=== PATIENT | female | born 1955 | race Caucasian/White ===

== ENCOUNTER 2016-09-23 20:12 | Inpatient (IN) | payer MEDICARE, MEDICAID ==
[~2016-09-23 20:12] MED LIST: /DIVA50TA PO; /HALO5TAB PO; ABIL1TAB5 PO; ABIL400I IM; ABIL5TAB5 PO; AMLO10TA PO; ASCO500T PO; ATIV1TAB7 PO; ATIV2TAB PO; BENA25CA2 PO; BENA25TA4 PO; BENADRYL PO; CATA0.1T PO; COLA50CA3 PO; DEPA1TAB3 PO; DEPA250C PO; DEPAKENE PO; DESITIN EXT; FOLI1TAB2 PO; FRUICHW PO; HALDOL PO; Haldol PO; INVE234I IM; LATU20TA PO; LIPI10TA PO; LIPI20TA PO; LITH600C PO; MELA3CAP PO; MULTCAP PO; NORV5TAB PO; PROP20TA5 PO; SELE50TA PO; TRAZ50TA4 PO; VALP25EL PO; VENL150C43 PO; VENL75CA47 PO; VITA500C24 PO; [UNRECOGNIZED DRUG - CODE] PO; cogentin PO; haldol PO
[2016-09-23] MEDS ORDERED: NS 1,000 ML IV ONE (20:45)
[2016-09-23 21:22] LABS: BASO % 0.5 % (0.0-1.0); EOS # 0.2 K/mm3 (0.0-0.50); EOS % 2.2 % (0.0-3.0); LARGE UNSTAINED CELL # 0.2 K/mm3 (0.0-0.4); LARGE UNSTAINED CELL % 1.8 % (0.0-4.0); LYMPH # 3.4 K/mm3 (1.5-4.5); LYMPH % 38.8 % (24.0-44.0); MEAN CORPUSCULAR HEMOGLOBIN 28.4 pg (27.0-33.0); MEAN CORPUSCULAR HGB CONC 32.6 g/dl (32.0-36.5); MONO # 0.5 K/mm3 (0.0-0.8); MONO % 5.4 % (0.0-5.0); NEUTROPHILS # 4.3 K/mm3 (1.8-7.7); NEUTROPHILS % 51.4 % (36.0-66.0); PLATELET COUNT, AUTOMATED 298 k/mm3 (150-450); RED CELL DISTRIBUTION WIDTH 12.9 % (11.5-14.5); WHITE BLOOD COUNT 8.4 K/mm3 (4.0-10.0)
[2016-09-23] MEDS ORDERED: LORazepam 2 MG/ML VIAL (J2060) IV STA (21:23)
[2016-09-23 21:25] LABS: VENOUS O2 SATURATION 98.4 % (60.0-80.0); VENOUS PARTIAL PRESSURE CO2 36.3 mmHg (38.0-50.0); VENOUS PARTIAL PRESSURE O2 113.5 mmHg (30.0-50.0); VENOUS STANDARD HCO3 23.6 MEQ/L; VENOUS TOTAL CO2 24.1 MEQ/L (24.0-28.0)
[2016-09-23 21:57] LABS: ALBUMIN 4.1 GM/DL (3.2-5.2); ALBUMIN/GLOBULIN RATIO 1.17 (1.00-1.93); ALKALINE PHOSPHATASE 84 U/L (45-117); ALT/SGPT 40 U/L (12-78); ANION GAP 11 MEQ/L (8-16); AST/SGOT 22 U/L (15-37); BILIRUBIN,DIRECT 0.1 MG/DL (0.0-0.2); BILIRUBIN,TOTAL 0.4 MG/DL (0.2-1.0); BLOOD UREA NITROGEN 15 MG/DL (7-18); CALCIUM LEVEL 9.2 MG/DL (8.8-10.2); CARBON DIOXIDE LEVEL 25 MEQ/L (21-32); CHLORIDE LEVEL 106 MEQ/L (98-107); CREATININE FOR GFR 1.04 MG/DL (0.55-1.02); GLOMERULAR FILTRATION RATE 57.4 (>45); GLUCOSE, FASTING 151 MG/DL (80-110); SODIUM LEVEL 142 MEQ/L (136-145); TOTAL PROTEIN 7.6 GM/DL (6.4-8.2)
[2016-09-23 23:30] LABS: METHADONE URINE NEGATIVE (NEGATIVE)
[2016-09-24] MEDS ORDERED: LORazepam 2 MG TAB PO ONE (06:15)
--- NOTE | 2016-09-24 09:38 | ECGEPIP ---
Stationary ECG Study [facility] - ED Test Date: 2016-09-23 Pat Name: GRISELDA RODARTE Department: Room: - Gender: F Sld Inclusion Teacher: lizandro : 1955 Requested By: HEATHER Rodriguez Order Number: [id number] Reading MD: Zita Soto Measurements Intervals [place] Rate: 100 P: 60 VT: 129 QRS: 52 QRSD: 94 T: 59 QT: 297 QTc: 383 Interpretive Statements SINUS TACHYCARDIA NONSPECIFIC T-WAVE ABNORMALITY ABNORMAL RHYTHM ECG RIGHT VENTRICULAR CONDUCTION DELAY SIMILAR 05/13/15 Electronically Signed On 09-24-2016 9:38:20 EDT by Zita Soto
[2016-09-24] MEDS ORDERED: LORazepam 2 MG TAB PO STA (11:34)
[2016-09-24 16:15] VITALS: BP 158/83
[2016-09-24] MEDS ORDERED: ACETAMINOPHEN TAB 650MG DOSE (2X325MG) PO PRN (17:15)
[2016-09-24] MEDS ORDERED: traZODone 50 MG TAB PO PRN (17:15)
[2016-09-24] MEDS ORDERED: MOM 30ML SUSPENSION UDC PO PRN (17:15)
[2016-09-24] MEDS ORDERED: MAALOX 30 ML SUSP *UDC PO PRN (17:15)
--- NOTE | 2016-09-25 10:57 | HPEPDOC ---
Medical History and Physical Date of Admission Sep 24, 2016 at 13:23 History and Physical PCP: None ATTENDING: Dr. Phan Fuller HPI: 61yoM admitted to [facility] for schizophrenia, being medically examined today. No acute medical complaints today. Patient states she has not been taking her regular medications. She practices homeopathic medication and uses Dramamine. Denies any fevers, chills, weakness, fatigue, ALLEN, CP, SOB, cough, palpitations, abdominal pain, N/V/D or changes in bowel or bladder habits. PMHx: Schizophrenia Anxiety Depression Bipolar disorder Hyperlipidemia Hypertension Tobacco use PSHX: Left forearm surgery SOCHX: Resides in: [place] Marital Status: Single Kids: None Employment: Unemployed Tobacco use: 1 pack per day ETOH: Denies Illicit Drugs: Denies IV Drug Use: Denies Tattoos done unprofessionally: Denies FAMHX: Mother: , liver cancer Father: , old age Siblings: 2 brothers Alive, well Children: None ROS: As noted in HPI, otherwise 11pt ROS of systems reviewed and remarkable for abrasion on the left knee which she states was from tripping on some stairs. PE: GEN: 61 yo F, appears stated age. Well-nourished, well developed. Alert and oriented x 3. Anxious. Rapid, pressured, tangential speech. HEENT: Normocephalic, atraumatic. Pupils are equal, round, and reactive to light. Extraocular movements are intact. No nystagmus appreciated. Sclera are nonicteric. Conjunctiva without injection. Nose midline. Nasal turbinates without bogginess. EACs both patent BL. TMs both visualized and pillai with good cone of light, no bulging or erythema. No facial asymmetry. Moist mucous membranes. Dentition fair. Pharynx pink and moist, no cobblestoning. Neck supple , trachea midline. No lymphadenopathy or thyromegaly appreciated. CHEST: Regular rate and rhythm, +S1, +S2 LUNGS: Clear to auscultation bilaterally. No wheezes, rales, or rhonchi. Breathing appears symmetric and easy. Patient is speaking in full sentences. No accessory muscle use. ABD: Round, soft, non-tender, non-distended. +Bowel sounds throughout. No rebound or guarding. No costovertebral angle tenderness. EXT: Pulses 2+ bilaterally dorsalis pedis and radial. No lower extremity edema appreciated. SKIN: [place], dry, warm. Capillary refill <2sec. No rashes. NEURO: Alert and oriented x 3. Cranial nerves III-XII are intact. No focal deficits appreciated. EK09/23/16 SINUS TACHYCARDIA NONSPECIFIC T-WAVE ABNORMALITY ABNORMAL RHYTHM ECG RIGHT VENTRICULAR CONDUCTION DELAY SIMILAR 05/13/15. A&P: 61yoM admitted to [facility] for schizophrenia 1. Psych. Plan per Psychiatry. EKG on file. 2. Nicotine dependence. Patch available. 3. Borderline EKG. No cardiac signs or symptoms appreciated on exam, follow with PCP. 4. Follow up. No Primary Care Provider. Will attempt to establish PCP on discharge. 5. Abrasion Left knee/ H/O Fall on Stairs. Dry dressing if needed. Recheck CK. 6. Reduced po intake. Recheck BMP. 7. Torrie SALES present throughout exam. Vital Signs Vital Signs Label Value Date Time Blood Pressure Assessment 122/72 (89) 09/24/16 1502 Source Automatic Cuff (NIBP) Vital Signs Label Value Date Time Patient Temperature 98.5 degrees F 09/24/16 1615 Temperature Source Skin 09/24/16 1615 Pulse 85 09/24/16 1615 Respiratory Rate 16 bpm 09/24/16 1615 Blood Pressure Assessment 158/83 (108) 09/24/16 1615 Bedside Pulse Oximetry 95 % 09/24/16 1615 Item Value Date Time Oxygen Delivery Method Room Air 09/24/16 1615 Laboratory Data Labs 24H Item Value Date Time White Blood Count 8.4 K/mm3 09/23/162101 Red Blood Count 4.71 M/mm3 09/23/162101 Hemoglobin 13.4 g/dl 09/23/162101 Hematocrit 40.9 % 09/23/162101 Mean Corpuscular Volume 87.0 fl 09/23/162101 Mean Corpuscular Hemoglobin 28.4 pg 09/23/162101 Mean Corpuscular Hemoglobin Concent 32.6 g/dl 09/23/162101 Red Cell Distribution Width 12.9 % 09/23/162101 Platelet Count 298 k/mm3 09/23/162101 Sodium Level 142 MEQ/L 09/23/162101 Potassium Level 4.0 MEQ/L 3/26/17 2102 Chloride Level 106 MEQ/L 09/23/162101 Carbon Dioxide Level 25 MEQ/L 09/23/162101 Anion Gap 11 MEQ/L 09/23/162101 Blood Urea Nitrogen 15 MG/DL 09/23/162101 Creatinine 1.04 MG/DL H 09/23/162101 Glomerular Filtration Rate 57.4 09/23/162101 Fasting Glucose 151 MG/DL H 09/23/162101 Osmolality 298 MOSM/KG 09/23/162101 Calcium Level 9.2 MG/DL 09/23/162101 Total Bilirubin 0.4 MG/DL 09/23/162101 Direct Bilirubin 0.1 MG/DL 09/23/162101 Aspartate Amino Transf (AST/SGOT) 22 U/L 09/23/162101 Alanine Aminotransferase (ALT/SGPT) 40 U/L 09/23/162101 Alkaline Phosphatase 84 U/L 09/23/162101 Total Creatine Kinase 261 U/L H 09/23/162101 Total Protein 7.6 GM/DL 09/23/162101 Albumin 4.1 GM/DL 09/23/162101 Albumin/Globulin Ratio 1.17 09/23/162101 Thyroid Stimulating Hormone (TSH) 1.290 uIU/ML 09/23/162101 Salicylates Level 2.6 MG/DL L 09/23/162101 Urine Opiates Screen NEGATIVE 09/23/162251 Urine Methadone Screen NEGATIVE 09/23/162251 Acetaminophen Level < 2.0 UG/ML L 09/23/162101 Urine Barbiturates Screen NEGATIVE 09/23/162251 Urine Phencyclidine Screen NEGATIVE 09/23/162251 Urine Amphetamines Screen NEGATIVE 09/23/162251 Urine Benzodiazepines Screen NEGATIVE 09/23/162251 Urine Cocaine Metabolite Screen NEGATIVE 09/23/162251 Urine Cannabinoids Screen NEGATIVE 09/23/162251 Ethyl Alcohol Level < 0.003 % 09/23/162101 Home Medications Unable to Obtain Active Prescriptions or Reported Meds Allergies Coded Allergies: Iodine (Verified Allergy, Unknown, 09/23/16) Scallop (Verified Allergy, Unknown, 09/23/16) Shellfish Allergy (Verified Allergy, Unknown, 09/23/16) Olanzapine (Verified Adverse Reaction, Unknown, mikie feeling in arms, ) Risperidone (Verified Adverse Reaction, Unknown, feeling rigid in my legs , 09/23/16) Huma Cunningham Sep 25, 2016 10:57
--- NOTE | 2016-09-25 12:38 | MHHPE ---
DATE OF ADMISSION: 09/24/2016 DATE OF SERVICE: 09/25/2016 This 61-year-old female states to me she is living in her apartment, and she states there were sick people there. She states the people are screaming at her. She states some of the people have been evicted and are living in a dark room as squatters. The patient states she takes dramamine for sleep. It works extremely well. She states some of the people in her apartment are yelling at her, that they were previously evicted. MEDICATIONS: The patient does not take any psychiatric medications. She takes homeopathic medications, lycopodium, and dramamine and is hoping to take thorn apple peel. She states thorn apple is for people who laugh a lot like her. She was unable to discuss her past medications. PSYCHIATRIC HISTORY: She has been hospitalized here approximately ten times with a history of court-ordered treatments and noncompliance. Apparently, the district sales manager is trying to get court-ordered outpatient treatment for her. LEGAL HISTORY: The patient did not want to discuss it. ALCOHOL HISTORY: Is negative. DRUG HISTORY: Is denied. MEDICAL HISTORY: The patient says she had ringworm and has a small wound on her right inner leg that she has been scratching at. She states she has a high school education. 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 MENTAL STATUS EXAMINATION: The patient's mood is elevated. Affect is bright. Her speech is circumferential, tangential, and rapid. She denies suicidal or homicidal ideation and is denying hallucinations, obsessions, compulsions, and phobias. She states she has an apartment to live in and would like to go home. Reviewing her emergency room admission, she was admitted to the emergency room with "disorganized thoughts, uncooperative, and paranoid about why she was brought here." She threatened police officers. She was sexually inappropriate with the officers and stating she had to clean out her system. She has bought glue for her teeth that are loose. The patient was reported to have Comet powder all over her arm and face and hands and near her mouth. According to emergency room, she had pressured speech. Was hard to redirect when she was being inappropriate and was verbally threatening. The patient has a long history with this facility and a long history of noncompliance with medication. She has a Department of [employer] ([employer]) worker named Kar Marti, who has assisted in getting her housing. She feels that there were drug dealers, bugs, and dirt in her apartment. The patient states in the emergency room and to me that she will only take homeopathic medications. Apparently, we had no available beds in our unit, and attempts to find patient bed at [facility]another [facility] Hospital were unsuccessful. The patient did not seem to be responding to internal stimuli during my interview with her. PLAN: Most likely, this patient will eventually need court-ordered outpatient treatment or commitment to a State facility. At this time, she is not demonstrating any suicidal or homicidal thoughts. Previous attempts to court-ordered treatment or in any way medicate this the patient have been met with a lack of success and a lack of compliance. Her living situation will be evaluated, and the patient will be evaluated, whether, in fact, we can be of any help to her in this facility. JOSE ARMANDO
--- NOTE | 2016-09-25 17:32 | MHDS ---
DATE OF ADMISSION: 09/24/2016 DATE OF DISCHARGE: 09/25/2016 This 61-year-old female has a long and extensive inpatient psychiatric history. She has many hospitalizations here on our unit. In which, she has been uncooperative with medication, been having to go to court to take medication and to get treatment against her wishes, and frequently the court has ruled in her favor. She states there were sick people in her apartment. She states people were screaming at her that some of the people that are there have previously been evicted and are living in a dark room as squatters. The patient states she takes Dramamine for sleep. She takes no other medications except for herbal medications. She states her herbal medications work well. MEDICATION HISTORY: The patient does not take any psychiatric medications and has in the past refused to take psychiatric medications and has been noncompliant with psychiatric medications. She takes homeopathic medications that she has told me were lycopodium, Dramamine, and hopefully thorn apple peel. She states that this medication is for people who laugh a lot like her. PSYCHIATRIC HISTORY: Numerous psychiatric hospitalizations here with court ordered treatments, noncompliance, and disruption on the unit. Apparently, court ordered outpatient treatment is trying to be arranged. LEGAL HISTORY: The patient did not want to discuss it. She denies alcohol use, drug history. MEDICAL HISTORY: The patient states that she had ringworm, a small wound on her leg which she said was cancer which she has cured on her own. She states she has a high school education. 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 MENTAL STATUS EXAMINATION: The patient denies repetitively any suicidal or homicidal ideation. Her mood is somewhat elevated. Her affect is bright. Her speech is circumferential, tangential, and rapid. She repetitively asks to be discharged and that she does not want medication. She is denying hallucinations, obsessions, compulsions, and phobias. She states she has an apartment to live in and would like to go home. Her admission to the emergency room was not for suicidal or homicidal ideation or acts, but she was found to be having disorganized thought and was uncooperative. They found her apartment to be disrupted, in that she had Comet spread all over the apartment that she was trying to clean. She had pressured speech. Attempts were made to find a hospital bed for her as our unit was full but then she was admitted this morning. She works with Department of [employer], Kar Josetanner, who has assisted in getting her housing and is working on getting her court ordered outpatient treatment. The patient did not seem to be responding to internal stimuli. PLAN: This patient will eventually need court ordered outpatient treatment and most likely will end with repetitive admissions. However, she is not demonstrating any suicidal or homicidal thoughts and is presently cooperative with requests on the unit. Previous attempts to court ordered treatment following disruption on units and attempts to medicate this patient have been met with not only a lack of success but a lack of compliance. Therefore, since this patient does not apparently seem to be a danger to herself or others, I will discharge her today. Without question, she needs psychiatric care but she does not want it nor has not been compliant with it. DIAGNOSIS: Bipolar disorder with psychotic features. She will be discharged to home.
== END 2016-09-25 16:20 | disposition home or self-care (01) | DRG 885 ==
LOC: M ED 21:21 → M ED INP 09-24 13:23 → M PSY 09-24 16:04
PROVIDERS: ADMIT Psychiatry & Neurology Child & Adolescent Psychiatry; ATTEND Psychiatry & Neurology Child & Adolescent Psychiatry
DX: F31.5 Bipolar disorder, current episode depressed, severe, with psychotic features (principal); E78.5 Hyperlipidemia, unspecified; I10 Essential (primary) hypertension; F17.210 Nicotine dependence, cigarettes, uncomplicated; Z91.14 Patient's other noncompliance with medication regimen; Z91.013 Allergy to seafood; Z88.8 Allergy status to other drugs, medicaments and biological substances; Z91.018 Allergy to other foods

== ENCOUNTER 2016-10-06 21:28 | Inpatient (IN) | payer MEDICARE, MEDICAID ==
[2016-10-06] MEDS ORDERED: HALOPERIDOL 5 MG/ML VIAL (J1630) IM ONE (23:00)
[2016-10-06] MEDS ORDERED: LORazepam 2 MG/ML VIAL (J2060) IM ONE (23:00)
[2016-10-06 23:20] LABS: MEAN CORPUSCULAR HEMOGLOBIN 27.9 pg (27.0-33.0); MEAN CORPUSCULAR HGB CONC 32.2 g/dl (32.0-36.5); MEAN CORPUSCULAR VOLUME 86.7 fl (80.0-96.0)
[2016-10-06 23:30] LABS: METHADONE URINE NEGATIVE (NEGATIVE)
[2016-10-06 23:41] LABS: ALBUMIN/GLOBULIN RATIO 1.25 (1.00-1.93); ALKALINE PHOSPHATASE 75 U/L (45-117); ALT/SGPT 43 U/L (12-78); ANION GAP 11 MEQ/L (8-16); AST/SGOT 23 U/L (15-37); BILIRUBIN,DIRECT < 0.1 MG/DL (0.0-0.2); BILIRUBIN,TOTAL 0.3 MG/DL (0.2-1.0); BLOOD UREA NITROGEN 9 MG/DL (7-18); CALCIUM LEVEL 9.2 MG/DL (8.8-10.2); CARBON DIOXIDE LEVEL 25 MEQ/L (21-32); CHLORIDE LEVEL 105 MEQ/L (98-107); CREATININE FOR GFR 0.73 MG/DL (0.55-1.02); GLOMERULAR FILTRATION RATE > 60.0 (>45); GLUCOSE, FASTING 116 MG/DL (80-110); POTASSIUM SERUM 3.9 MEQ/L (3.5-5.1); SODIUM LEVEL 141 MEQ/L (136-145); TOTAL PROTEIN 7.2 GM/DL (6.4-8.2)
[2016-10-07] MEDS ORDERED: traZODone 50 MG TAB PO PRN (00:15)
[2016-10-07] MEDS ORDERED: LORazepam 1 MG TAB PO PRN (00:15)
[2016-10-07] MEDS: ACETAMINOPHEN TAB 650MG DOSE (2X325MG) PO PRN (19:25)
--- NOTE | 2016-10-08 05:30 | MHHPE ---
DATE OF ADMISSION: 10/07/2016 DATE OF EVALUATION: 10/07/2016 HISTORY OF PRESENT ILLNESS: This is a 61-year-old white woman with history of schizophrenia and chronic noncompliance with treatment. She was admitted after she was brought by the police. She had been accosting people in the streets and saying she wanted to eat people and cut off people's ears. She was disheveled. Her thinking was very disorganized. She could not really answer any questions. Today I am not really able to get much of a history from her either. Mostly I am getting word salad and I really cannot make out much of anything. PAST PSYCHIATRIC HISTORY: I was able to review records from hospitalizations at [facility] from 09/24/2016, to 09/25/2016. She presented acutely psychotic. She indicated she would only take homeopathic medications. It was not felt that she was an acute danger to self or others, and she was pretty much discharged overnight, and she was discharged on no medications. Further review from records from other hospitalizations at [facility] , showed at least one occasion they did go to court and obtained treatment over objection , so patient was also refusing medications at that point. MEDICAL HISTORY: The patient has hypercholesterolemia, hypertension. FAMILY HISTORY: No psychiatric history in the family or suicides in the family. SUBSTANCE ABUSE HISTORY: The patient denies any problems with alcohol and drug use. REVIEW OF SYSTEMS: VITAL SIGNS: Blood pressure 172/89, pulse 98, respirations 16, temperature 96.1. APPEARANCE: The patient was disheveled NEUROMUSCULAR SYSTEM: The patient's gait is normal and there was no involuntary movements noted. All other systems were reviewed and found to be negative. MENTAL STATUS EXAM: The patient is alert and oriented to person at least. Her speech is pressured and thought are so disorganized that I could not further complete the mental status exam.Insight and judgement is severely impaired DIAGNOSIS: Bipolar disorder, type I, manic, with psychotic symptoms. TREATMENT PLAN: At this point, we will encourage the patient to restart her medications, but she has been refusing so far. It may be necessary to go to the treatment over objection for this patient, because she seems to be a threat to the community and indirectly to herself. SHANNAND
[2016-10-08] MEDS: ACETAMINOPHEN TAB 650MG DOSE (2X325MG) PO PRN ×2 (07:36→15:03)
[2016-10-08] MEDS: ARIPiprazole 10 MG TAB PO SCH (09:00)
[2016-10-08] MEDS: MUPIROCIN 2% OINT 22 GM TUBE TOP SCH ×2 (09:00→20:08)
[2016-10-08] MEDS: **PENDING PPD ENTRY XX SCH (09:00)
--- NOTE | 2016-10-08 10:12 | HPEPDOC ---
Medical History and Physical Date of Admission Oct 07, 2016 at 00:04 History and Physical PCP: None ATTENDING: Dr. Phan Fuller HPI: 61yoM admitted to [facility] for schizophrenia, being medically examined today. No acute medical complaints today. Patient states she has not been taking her regular medications. She states she uses Dramamine. She states she needs to see a dentist but denies any dental pain at this time. Denies any fevers, chills, weakness, fatigue, ALLEN, CP, SOB, cough, palpitations, abdominal pain, N/V/D or changes in bowel or bladder habits. PMHx: Schizophrenia Anxiety Depression Bipolar disorder Hyperlipidemia Hypertension Tobacco use poor dentition PSHX: Left forearm surgery SOCHX: Resides in: [place] Marital Status: Single Kids: None Employment: Unemployed Tobacco use: 1 pack per day ETOH: Denies Illicit Drugs: Denies IV Drug Use: Denies Tattoos done unprofessionally: Denies FAMHX: Mother: , liver cancer Father: , old age Siblings: 2 brothers Alive, well Children: None ROS: As noted in HPI, otherwise 11pt ROS of systems reviewed and remarkable for a small dime size skin lesion Rt pretibial area as per nursing. PE: GEN: 61 yo F, appears stated age. Well-nourished, well developed. Alert and oriented x 3. Anxious. Rapid, pressured, tangential speech. HEENT: Normocephalic, atraumatic. Pupils are equal, round, and reactive to light. Extraocular movements are intact. No nystagmus appreciated. Sclera are nonicteric. Conjunctiva without injection. Nose midline. Nasal turbinates without bogginess. EACs both patent BL. TMs both visualized and pillai with good cone of light, no bulging or erythema. No facial asymmetry. Moist mucous membranes. Dentition poor. Pharynx pink and moist. Neck supple, trachea midline. No lymphadenopathy or thyromegaly appreciated. CHEST: Regular rate and rhythm, +S1, +S2 LUNGS: Clear to auscultation bilaterally. No wheezes, rales, or rhonchi. Breathing appears symmetric and easy. Patient is speaking in full sentences. No accessory muscle use. ABD: Round, soft, non-tender, non-distended. +Bowel sounds throughout. No rebound or guarding. No costovertebral angle tenderness. EXT: Pulses 2+ bilaterally dorsalis pedis and radial. No lower extremity edema appreciated. SKIN: [place], dry, warm. No rashes. There is a small dime sized skin lesion noted pretibial area RLE, no drainage, no signs of infection. NEURO: Alert and oriented x 3. Cranial nerves III-XII are intact. No focal deficits appreciated. EK09/23/16 SINUS TACHYCARDIA NONSPECIFIC T-WAVE ABNORMALITY ABNORMAL RHYTHM ECG RIGHT VENTRICULAR CONDUCTION DELAY SIMILAR 05/13/15. A&P: 61yoM admitted to [facility] for schizophrenia 1. Psych. Plan per Psychiatry. EKG on file. 2. Nicotine dependence. Patch available. 3. Borderline EKG. No cardiac signs or symptoms appreciated on exam, follow with PCP. 4. Follow up. No Primary Care Provider. Will attempt to establish PCP on discharge. 5. Skin lesion RLE. Dry dressing if needed. Monitor for any signs of infection. Outpt F/U. 6. Sugey SALES present throughout exam. Vital Signs Vital Signs Date Time Temp Pulse Resp B/P Pulse Ox O2 Delivery O2 Flow Rate FiO2 10/07/16 00:43 98 16 172/89 94 10/06/16 22:25 96.1 Laboratory Data Labs 24H Item Value Date Time White Blood Count 9.0 K/mm3 10/06/162211 Red Blood Count 4.28 M/mm3 10/06/162211 Hemoglobin 12.0 g/dl 10/06/162211 Hematocrit 37.1 % 10/06/162211 Mean Corpuscular Volume 86.7 fl 10/06/162211 Mean Corpuscular Hemoglobin 27.9 pg 10/06/162211 Mean Corpuscular Hemoglobin Concent 32.2 g/dl 10/06/162211 Red Cell Distribution Width 13.0 % 10/06/162211 Platelet Count 277 k/mm3 10/06/162211 Sodium Level 141 MEQ/L 10/06/162211 Potassium Level 3.9 MEQ/L 10/06/162211 Chloride Level 105 MEQ/L 10/06/162211 Anion Gap 11 MEQ/L 10/06/162211 Carbon Dioxide Level 25 MEQ/L 10/06/162211 Blood Urea Nitrogen 9 MG/DL 10/06/162211 Creatinine 0.73 MG/DL 10/06/162211 Glomerular Filtration Rate > 60.0 10/06/162211 Fasting Glucose 116 MG/DL H 10/06/162211 Calcium Level 9.2 MG/DL 10/06/162211 Total Bilirubin 0.3 MG/DL 10/06/162211 Direct Bilirubin < 0.1 MG/DL 10/06/162211 Aspartate Amino Transf (AST/SGOT) 23 U/L 10/06/162211 Alanine Aminotransferase (ALT/SGPT) 43 U/L 10/06/162211 Alkaline Phosphatase 75 U/L 10/06/162211 Total Protein 7.2 GM/DL 10/06/162211 Albumin 4.0 GM/DL 10/06/162211 Albumin/Globulin Ratio 1.25 10/06/162211 Thyroid Stimulating Hormone (TSH) 1.140 uIU/ML 10/06/162211 Salicylates Level 2.8 MG/DL L 10/06/162211 Urine Opiates Screen NEGATIVE 10/06/162211 Urine Methadone Screen NEGATIVE 10/06/162211 Acetaminophen Level < 2.0 UG/ML L 10/06/162211 Urine Barbiturates Screen NEGATIVE 10/06/162211 Urine Phencyclidine Screen NEGATIVE 10/06/162211 Urine Amphetamines Screen NEGATIVE 10/06/162211 Urine Benzodiazepines Screen NEGATIVE 10/06/162211 Urine Cocaine Metabolite Screen NEGATIVE 10/06/162211 Urine Cannabinoids Screen NEGATIVE 10/06/162211 Ethyl Alcohol Level < 0.003 % 10/06/162211 Home Medications Unable to Obtain Active Prescriptions or Reported Meds Allergies Coded Allergies: Iodine (Verified Allergy, Unknown, 09/23/16) Scallop (Verified Allergy, Unknown, 09/23/16) Shellfish Allergy (Verified Allergy, Unknown, 09/23/16) Olanzapine (Verified Adverse Reaction, Unknown, mikie feeling in arms, ) Risperidone (Verified Adverse Reaction, Unknown, feeling rigid in my legs , 09/23/16) Huma Cunningham Oct 08, 2016 10:12
[2016-10-08] MEDS ORDERED: TUBERCULIN PPD 5 UNITS/0.1 ML ID ONE (10:15)
[2016-10-08] MEDS ORDERED: diphenhydrAMINE 50 MG CAP PO PRN (10:30)
[2016-10-08] MEDS ORDERED: LORazepam 2 MG TAB PO PRN (10:30)
[2016-10-08] MEDS ORDERED: HALOPERIDOL 5 MG TAB PO PRN (10:30)
--- NOTE | 2016-10-08 11:21 | IPN ---
DATE: 10/08/2016 Yun Montes was admitted by Dr. Katz. She continues to present with thought disorder and elevated mood. Apparently, she had accosted people in the streets and said she wanted to eat people and cut off people's ears. The patient was recently here at the hospital and was discharged since she did not present an immediate danger to herself or others. The patient has a history of refusing all medications and numerous court appearances for treatment over objection. She also has history of noncompliance with medications. She presents today with rapid speech, elevated mood, poor insight, poor judgment, loose associations, circumferential and circumstantial thinking, poor attention and poor concentration, elevated mood with congruent affect. PLAN: Due to patient's present refusal of any psychiatric medications and past difficulties with that, I have suggested her hospitalization at [facility] and have ordered the appropriate orders for that. I have ordered Abilify 10 mg, but if history serves us, she will be refusing any medication. DIAGNOSIS: Bipolar disorder, manic type. FDC plan is to send to [facility].
[2016-10-09] MEDS: MAALOX 30 ML SUSP *UDC PO PRN (03:14)
[2016-10-09] MEDS: MUPIROCIN 2% OINT 22 GM TUBE TOP SCH ×2 (08:21→20:41)
[2016-10-09] MEDS: ARIPiprazole 10 MG TAB PO SCH (08:21)
[2016-10-09] MEDS: **PENDING PPD ENTRY XX SCH (08:22)
--- NOTE | 2016-10-09 13:45 | IPN ---
DATE: 10/09/2016 Yun Montes continues to be hyper-verbal, thought disordered, loose associations, circumferential thinking, circumstantial thinking with poor insight and poor judgment. She continues to refuse any medications as she has done in the past. She has been prescribed Abilify. The patient has a history of refusing all medications, numerous court appearances for treatment over objection, long history of noncompliance with medications, and again today has rapid speech, elevated mood, poor insight, poor judgment, loose associations, poor concentration, elevated mood, congruent affect. PLAN: We will be contacting her coal passer and most likely she may have to go to [facility]. DIAGNOSIS: Bipolar, manic type. PRESENT MEDICATIONS: Abilify 10 mg in the morning, the patient has refused.
[2016-10-09] MEDS: ACETAMINOPHEN TAB 650MG DOSE (2X325MG) PO PRN (21:18)
[2016-10-10] MEDS: MAALOX 30 ML SUSP *UDC PO PRN ×2 (01:17→18:06)
[2016-10-10] MEDS: MUPIROCIN 2% OINT 22 GM TUBE TOP SCH ×3 (09:00→21:00)
[2016-10-10] MEDS: ARIPiprazole 10 MG TAB PO SCH (09:00)
[2016-10-10] MEDS: **PENDING PPD ENTRY XX SCH (09:00)
[2016-10-10] MEDS ORDERED: PPD DOCUMENTATION ENTRY MISC XX SCH (10:00)
[2016-10-10] MEDS: ACETAMINOPHEN TAB 650MG DOSE (2X325MG) PO PRN (10:04)
--- NOTE | 2016-10-10 10:28 | IPN ---
DATE OF SERVICE: 10/10/2016 Yun Montes continues to be hyperverbal, though disorder, loose associations, circumferential thinking, sudden changes in mood from elated to angry. She continues with poor insight and poor judgment. She continues to refuse any medications as she has done in the past. We discussed her case with Kar Marti, who has been her termite treater helper. He agrees that due to the patient's continued noncompliance and continued repeated admissions and arrests, that she will have to be most likely committed to [facility]. The patient has a history of refusing all medications, numerous court appearances for treatment over objection, and a long history of noncompliance with medications. She has rapid speech, elevated mood, poor insight, poor judgment, loose associations, poor concentration, and elevated mood with congruent affect. DIAGNOSIS: Bipolar manic type. Medications continue to be Abilify 10 mg in the morning. The patient refuses.
[2016-10-11] MEDS: ACETAMINOPHEN TAB 650MG DOSE (2X325MG) PO PRN ×3 (04:32→21:35)
[2016-10-11] MEDS: MUPIROCIN 2% OINT 22 GM TUBE TOP SCH ×2 (08:56→21:00)
[2016-10-11] MEDS: ARIPiprazole 10 MG TAB PO SCH (08:56)
[2016-10-11] MEDS: **PENDING PPD ENTRY XX SCH (08:56)
[2016-10-11] MEDS ORDERED: KETOCONAZOLE 2% CREAM TOP PRN (09:00)
--- NOTE | 2016-10-11 12:55 | IPN ---
DATE: 10/11/2016 I met with Yun Pageckett numerous times today. Patient continues hyper verbal thought disorder intrusive with loose associations, at times yelling and banging on the door with sudden changes in mood from elated to angry to somewhat threatening. She continues with poor insight and poor judgment and once again, refuses any medications as offered to her daily. I discussed the case with staff and am presently pursuing treatment over objection. She is restricted to not participate in groups. A behavioral plan has been given to the patient as well as to the staff. DIAGNOSIS: Bipolar, manic type. Medications continue to be Abilify 10 in the morning. Patient has refused it daily. She has been offered other medications and she has refused them also.
[2016-10-11] MEDS: MAALOX 30 ML SUSP *UDC PO PRN (19:01)
[2016-10-12] MEDS: ARIPiprazole 10 MG TAB PO SCH (08:11)
[2016-10-12] MEDS: MUPIROCIN 2% OINT 22 GM TUBE TOP SCH ×2 (08:11→21:00)
[2016-10-12] MEDS: **PENDING PPD ENTRY XX SCH (08:11)
--- NOTE | 2016-10-12 16:32 | IPN ---
DATE: 10/12/2016 Yun Montes was assigned under a [facility] for further care and treatment over objection documentation was initiated. I met with Yun Montes numerous times today. Patient continues hyperverbal, thought disordered, and intrusive with loose association, at times yelling and banging on the door with sudden changes in mood from elated and angry to somewhat threatening. She continues with poor insight and poor judgment. Once again refuses any medications offered her daily. She became loud and oppositional when presented with documentation. I have continued to discuss this case with staff in depth as to options. Patient has been restricted to not to participate in group. Behavioral plan has been drawn up for the patient as well as staff. Patient has a long history of numerous hospitalizations and chronic noncompliance with treatment as well as recent arrests. DIAGNOSIS: Bipolar, manic type. Medication continues to be offered, Abilify 10 mg in the morning. Patient continues to refuse it. She has been offered other medications and refused them also.
[2016-10-13] MEDS: ARIPiprazole 10 MG TAB PO SCH (09:00)
[2016-10-13] MEDS: **PENDING PPD ENTRY XX SCH (09:00)
[2016-10-13] MEDS: MUPIROCIN 2% OINT 22 GM TUBE TOP SCH ×2 (09:00→20:47)
--- NOTE | 2016-10-13 18:42 | IPN ---
DATE: 10/13/2016 SUBJECTIVE: Yun Montes has been assigned to primary care (PC) for further care and treatment over objection. Documentation has been initiated. I meet every day with Yun Montes as I did today numerous times. The patient presented me with paintings that she had covered with jelly. The patient continues hyper-verbal, intrusive thought disorder with continued loose association, poor judgment and poor insight. The patient once again refuses any medications offered to her, and yesterday when presented with documentation, became loud and aggressive. I have continued to discussed the case with staff in depth as to options. The patient has behavioral plan drawn up. Long history of numerous hospitalizations and continued noncompliance. Recent arrest initiated this hospitalization. The patient continues to refuse medication any type, and suggests that she only wants to take herbal medications of her choice. DIAGNOSIS: Bipolar manic type.
[2016-10-14] MEDS ORDERED: HALOPERIDOL 5 MG/ML VIAL (J1630) IM STA (08:12)
[2016-10-14] MEDS: ARIPiprazole 10 MG TAB PO SCH (09:00)
[2016-10-14] MEDS: MUPIROCIN 2% OINT 22 GM TUBE TOP SCH ×2 (09:00→21:00)
[2016-10-14] MEDS ORDERED: TUBERCULIN PPD 5 UNITS/0.1 ML ID ONE (11:00)
[2016-10-14] MEDS: ACETAMINOPHEN TAB 650MG DOSE (2X325MG) PO PRN (22:21)
--- NOTE | 2016-10-15 06:18 | IPN ---
DATE OF VISIT: 10/14/2016 Spoke with staff at 6:45 this morning. Ms. Montes has been disruptive on the unit and undirectable. She continues to refuse her medication as prescribed. The patient apparently at approximately 8:10 this morning continued to be disruptive , loud, upsetting and insulting other patients. She was not able to be redirected by staff and was coded. MEDICATIONS PRESCRIBED WERE: - 5mg Haldol times two, gluteal injection with 50 mg Benadryl and 2 mg Ativan. MENTAL STATUS: Speech is loud and rapid. Thought processes, associations are loose. Insight and judgment is poor. The patient is fully oriented. Recent and remote memory are intact. Attention and concentration are poor. Mood is elevated. Affect is excited. DIAGNOSIS: Bipolar disorder, manic type. PLAN: The patient continues to be under 2PC and will begin treatment over objection process. Behavioral plan for patient was unable to be submitted to patient and therefore staff was unable to sign off on it. [facility]
[2016-10-15 06:30] VITALS: BP 114/57
[2016-10-15] MEDS: MUPIROCIN 2% OINT 22 GM TUBE TOP SCH ×2 (09:00→21:00)
[2016-10-15] MEDS: ARIPiprazole 10 MG TAB PO SCH (09:00)
--- NOTE | 2016-10-15 13:45 | IPN ---
DATE: 10/15/2016 Yun Montes continues to approach every staff member. Her thoughts continue with loose associations. Her topics change rapidly. This morning, she discussed cleaning of the floor, her plants, her diet. In conversing, she does not listen to the person she is conversing to and has to frequently be redirected. Her mood continues elevated. Her thoughts continue disordered. MENTAL STATUS EXAMINATION: Her speech is rapid. Her thoughts are circumferential, tangential with loose associations. Her insight and judgment are poor. She is fully oriented. Her recent and remote memory are not able to be evaluated. Her attention and concentration are poor. She has a full fund of knowledge. Her mood is high. Her affect is bright. The patient continues to refuse medication. DIAGNOSIS: Bipolar disorder, manic type. Plans for the patient to receive treatment over objection continue.
--- NOTE | 2016-10-15 16:49 | IPN ---
EVALUATION FOR TREATMENT OVER OBJECTION: DATE OF SERVICE: 10/15/2016 DATE OF ADMISSION: 10/07/2016 This is a 61-year-old white female with a history of possible schizophrenia, bipolar disorder and chronic noncompliance with treatment. She was admitted after being brought to the hospital by police. She has been accosting people in the streets and saying she wanted to eat people and cut off people's ears. She was extremely disheveled and her thinking was very disorganized. PAST PSYCHIATRIC HISTORY: Notes from her previous admissions and her past hospitalizations indicate the following:. At that time, she presented acutely psychotic and would only take homeopathic medications. At that particular time, it was felt that she was not an acute danger to herself or others though she was clearly thought disordered and she was discharged the following day of 09/25/2016. According to staff she has had numerous hospitalizations at [facility] inpatient mental health unit and has had several appearances in court to obtain treatment over objection. In some of these cases, she has been sent to [facility] and in some of these cases she has been discharged. Her psychiatric admissions have been characterized by poor insight, noncompliance and transfers to a publicity agent psychiatric unit. She has at times been hospitalized for calling 911 several times. She has reported people poisoning her food. On her admissions, she has frequently been aggressive towards staff and required chemical restraints. During this present admission, she has been thought disordered, intrusive, and has been aggressive toward other patients. She is treating a leg sore that she says is cancer with toothpaste.She has required on 10/14/2016, a chemical restraint due to her aggressiveness and intrusiveness. On her initial evaluation by Dr. Katz and later by myself, she is pressured in her speech with grandiose delusions, stating her expertise in homeopathic medications in curing her own cancer, which is a sore on her leg. 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 She continues to constantly stop staff and patients in the [place] talking to them and praying with pressured speech. She claims expertise in many topics. She become easily agitated if one tries to answer her or discuss with her her situation and condition. She is unable to engage in conversation and allow the other person to speak. She has refused on a daily basis any need for medication. Frequently, she accosts staff in the [place] for one topic and immediately changes to two or three different topics. She has demonstrated circumferential thinking. In the past .She has talked about germs and attempts to clean the unit. She has in the past stated that staff were trying to kill her. She has in the past talked about treating herself with radium bromide pellets. She has in the past thrown iced coffee at staff. PAST MEDICATIONS: Have included Abilify Maintena, Abilify oral, Latuda as well as others. It is noted that she has had improvement in her mental status by the use of psychotropics medications in the past. She was in the past transferred to [facility]. On the unit, the patient is at times hostile and intrusive and continues to not comply to medication with medication requests. SECTION II: PROPOSED TREATMENT: COURSE OF TREATMENT RECOMMENDED BY TREATING PHYSICIAN: The patient has apparently improved with psychotropic medications in the past. During this hospitalization she has refused all medications. We have sought to give patient Abilify 10 mg in the morning, but the patient has refused. If patient continues to refuse Abilify, we would recommend oral dose of Prolixin or Haldol. The patient claims she is allergic to Haldol, but this is not shown to be true. Abilify dose orally would be increased perhaps to 20 mg if the patient would comply and followed up by Jeyson Steen in intramuscular dose of 400 mg. This would be an injectable medication. The patient reports ALLERGIES to OLANZAPINE, RISPERDAL, but other medications usable for short acting intramuscular doses would be Haldol, Prolixin, or Zyprexa. She would be able to use Haldol 5 to 20 mg intramuscular, Prolixin 5 to 20 mg intramuscular and Zyprexa 5 to 30 mg. Long-acting medications might also include Invega Sustenna after an oral treatment of Invega oral or Haldol decanoate 50 to 100 mg following oral doses of Haldol 10 to 20 mg or Prolixin decanoate. The patient may require a combination of both short acting and long acting medications during the titration period in order to control symptoms and determine most effective maintenance dosage for long acting medication. REASONABLE ALTERNATIVES: The patient could also be given a mood stabilizer additionally such as Depakote, anywhere from 1000 to 1500 mg to maintain and stabilize her mood. HAS THE PATIENT BEEN TRIED ON POST TREATMENT: The patient has refused all psychotropic medications. HAS THE PATIENT BEEN TRIED ON OTHER TREATMENTS: The patient is refusing. PRIOR TREATMENT: The patient was put on Abilify Maintena in prior treatment at [facility]. SECTION V: ANTICIPATED BENEFITS FOR PROPOSED TREATMENT: Reduction of manic symptoms, increased ability to organize her thoughts, becoming less intrusive, perhaps being able to maintain herself in the community without interruption. Reducing the risk of patient using various homeopathic remedies. Medications would help her become more organized, reduce her risk of harm to herself and perhaps to the community. SECTION : REASONABLE FORESEEABLE ADVERSE EFFECTS OF MEDICATIONS: Include neuroleptic malignant syndrome and tardive dyskinesia, and oversedation. The patient may need either Benadryl 50 mg intramuscular (IM) every 6 hours for side-effects while being treated and on an outpatient basis, may need Cogentin .50 mg to 1 mg orally for side effects as well. SECTION VII: PROGNOSIS WITHOUT TREATMENT: The patient would remain with current symptoms leading to continued illness, presenting herself with manic symptoms and a danger to herself and possibly others. PATIENT CAPACITY: Her condition has been explained to her. Despite her disagreement proposed treatment has been explained to her on a daily basis. Anticipated benefits of treatment have been explained to the patient as best as possible on a daily basis. Risk of adverse effects of treatment have been explained to the patient. Availability of other treatments and comparison of benefits and risks with proposed treatment: The patient has been unable to understand such benefits. RISK OF NO TREATMENT: Yes. I have met with the patient every day since admission. She has no insight and could not understand the various risks and benefits of the proposed treatments. STATE THE NATURE OF PATIENT'S OBJECTIONS TO PROPOSED TREATMENT: The patient feels that she is not in need of any medication despite her repetitive admissions, arrests and hospitalizations. The patient's capacity to make decisions on her treatment: The patient has had no insight as to her decisions to make treatment and denies any mental health difficulties despite numerous hospitalizations. LIKELIHOOD OF DANGEROUS BEHAVIOR: The patient is believed to be dangerous to others as well as herself unless treated. The patient will continue to exhibit her intrusive behavioral, verbal assaults and hostility to others with no apparent ability at self control. During this hospitalization staff and patients have tolerated patient as best as possible until she has become aggressive to other patients, upset other patients and been unable to accept limitations. She is unable to engage in productive conversation. THE PATIENT IS BELIEVED TO LIKELY BE A DANGER TO HERSELF IF NOT TREATED: Yes. The patient will continue to exhibit manic symptoms and delusional symptoms if not treated. The patient will continue to exhibit symptoms of poor impulse control, grandiose and paranoid delusions, leaving her susceptible to aggression by others. Patient's poor self care and understanding medically and dental prevent her from proper care. SECTION V: ANY OTHER INFORMATION OR COMMENTS: The patient has along history of hospitalizations, noncompliance, grandiose delusions, persecutory delusions and symptoms of aaron with a history of poor insight and compliance and a history of being sent to group home psychiatric facilities in the past with no apparent improvement or compliance. The patient is chronically ill and we are requesting treatment over objection. JOSE ARMANDO
[2016-10-16] MEDS: MOM 30ML SUSPENSION UDC PO PRN (04:34)
[2016-10-16] MEDS: ARIPiprazole 10 MG TAB PO SCH (08:53)
[2016-10-16] MEDS: MUPIROCIN 2% OINT 22 GM TUBE TOP SCH ×2 (08:53→20:26)
[2016-10-16] MEDS ORDERED: PPD DOCUMENTATION ENTRY MISC XX SCH (10:00)
--- NOTE | 2016-10-16 15:08 | IPN ---
DATE: 10/16/2016 Yun Montes continues to show sore on her leg that she says is cancer and states she is treating it with toothpaste. She entered group meetings where she was not supposed to be and became explosive requiring staff to calm her down. She continues thought disorder. She continues to request discharge. She continues to change topics rapidly. She continues to refuse any medications. She continues intrusive. She states that the patients are not being fed. Her mood continues elevated labile and at times irritable. Her thoughts continue disordered. Her speech is rapid. Her thoughts are circumferential and tangential with loose associations. Insight and judgment poor. She is fully oriented. Her recent and remote memory are not able to be evaluated. Attention and concentration poor. She has a full fund of knowledge. Mood is high, sometimes dysphoric. Affect is bright. DIAGNOSES: Bipolar, manic type. The patient continues to refuse treatment. [facility]
[2016-10-17] MEDS: MUPIROCIN 2% OINT 22 GM TUBE TOP SCH ×2 (09:00→21:00)
[2016-10-17] MEDS: ARIPiprazole 10 MG TAB PO SCH (09:00)
[2016-10-17] MEDS ORDERED: HALOPERIDOL 5 MG/ML VIAL (J1630) IM STA (11:35)
[2016-10-17] MEDS ORDERED: diphenhydrAMINE INJ 50MG/ML VIAL (J1200) IM STA (11:35)
--- NOTE | 2016-10-17 14:06 | IPN ---
DATE: 10/17/2016 Evening staff and morning staff reported Ms. Montes continues to be disruptive and intrusive on the unit. I met with her this morning. She discussed five different herbal treatments for various conditions. Her thoughts were disorganized. Her speech was exceptionally rapid. She had yesterday entered group meetings she was not supposed to. She has been explosive whenever the staff attempt to calm her down. She continues thought disordered. She continues to request discharge. She continues to refuse medications. She continues to challenge staff. This afternoon, she continued disruptive, frightening other patients and seemed unable to be calmed. She was given a as needed (p.r.n.) injection of Haldol 10 mg. There is no length of time ordered for this as it was an injection. I continue to have [id number] evaluations with the patient. The patient does not appear to be significantly calmed and at the moment by 1:44 p.m. I would consider the use of injection to be only moderately effective. The patient continues to need counseling and assistance. We will continue the same treatment plan and recommendations for future incidents, which we are attempting to use the most minimal amount. During her stay so far, since 10/08/2016, there have been only two as I can recall times when we have felt the need for patient's safety and staff safety to use the p.r.n. injections. She is offered oral medication at any time, but this considered and only used after she refuses her own medication. Her speech is rapid. Thought processes are logical. No loose associations. Judgment and insight continue poor. Fully oriented. Recent and remote memory intact. Attention and concentration poor. No disturbance of language. Full fund of knowledge. Mood is elevated and irritable. Affect is at times bright, laughing and irritated. DIAGNOSIS: Bipolar disorder. Treatment over objection documentation is in process.
[2016-10-17] MEDS: ACETAMINOPHEN TAB 650MG DOSE (2X325MG) PO PRN (18:35)
[2016-10-18] MEDS: ARIPiprazole 10 MG TAB PO SCH (08:50)
[2016-10-18] MEDS: MUPIROCIN 2% OINT 22 GM TUBE TOP SCH ×2 (08:50→21:00)
--- NOTE | 2016-10-18 12:25 | IPN ---
DATE: 10/18/2016 Ms Montes continues to be destructive and intrusive on the unit. I met with her this morning. She discussed using Aspercreme that her feet hurt and her diet. Her thoughts continue disorganized. Her speech is rapid. She continues to refuse medications offered to her. She continues to challenge staff. MENTAL STATUS EXAMINATION: Her speech is rapid. Though processes are illogical. No loose associations. Judgment and insight are poor. Fully oriented. Recent and remote memory intact. Attention and concentration poor. Mood is elevated and irritable. Affect is bright but sometimes laughing and irritated. It is my understanding that Dr. Mclaughlin will be examining her today to confirm need for treatment over objection. DIAGNOSES: Bipolar disorder.
[2016-10-18] MEDS: MOM 30ML SUSPENSION UDC PO PRN (18:30)
[2016-10-19] MEDS: ARIPiprazole 10 MG TAB PO SCH (08:27)
[2016-10-19] MEDS: MUPIROCIN 2% OINT 22 GM TUBE TOP SCH ×2 (08:27→20:48)
--- NOTE | 2016-10-19 09:44 | IPN ---
DATE: 10/19/2016 Discussion with staff yesterday informed me that I would be provided with Yun Montes's extensive legal difficulties and arrests. It should be noted that this is what led to this present admission. The patient continues still to be thought disordered with loose associations, illogical thoughts, poor insight. She is fully oriented. Recent and remote memory intact as best as can be determined. Attention and concentration poor. Mood elevated and at times irritable. Affect bright, laughing and then at times irritated. I spent significant individual time with Yun Montes yesterday and her topics changed from moment to moment. Due to her continued history of arrests and her refusal of any treatment, her continued intrusiveness and florid thought disorder, we are continuing to seek treatment over objection. DIAGNOSIS: Bipolar disorder, manic type. Due to the patient taking poor care of her health, her teeth and her continued arrests, as well as erratic intrusiveness bordering on aggression, we continue to seek treatment over objection. The patient's continued noncompliance noted.
[2016-10-19] MEDS: ACETAMINOPHEN TAB 650MG DOSE (2X325MG) PO PRN (20:45)
[2016-10-20] MEDS: ACETAMINOPHEN TAB 650MG DOSE (2X325MG) PO PRN (06:11)
[2016-10-20] MEDS: ARIPiprazole 10 MG TAB PO SCH (09:00)
[2016-10-20] MEDS: MUPIROCIN 2% OINT 22 GM TUBE TOP SCH ×2 (09:00→20:49)
[2016-10-20] MEDS ORDERED: LORazepam 2 MG/ML VIAL (J2060) IM STA ×2 (10:38→12:40)
[2016-10-20] MEDS ORDERED: diphenhydrAMINE INJ 50MG/ML VIAL (J1200) IM STA ×2 (10:38→12:40)
[2016-10-20] MEDS ORDERED: HALOPERIDOL 5 MG/ML VIAL (J1630) IM STA ×2 (10:38→12:40)
[2016-10-20] MEDS ORDERED: BENZTROPINE MESYLATE 2MG/2ML VIAL IM STA (12:45)
--- NOTE | 2016-10-20 13:34 | IPNPDOC ---
[facility] Progress Note Progress Note DATE OF SERVICE: 10/20/16 HISTORY: 61-year-old female known for bipolar disorder and medication noncompliance was called in today twice because she has being very agitated and walked into other patient's rooms can actually hurt her. She has not been physically aggressive but she defiant, refuses medication and has escalated. Continues to have pressure speech, flight of ideas, grandiosity, elated mood, Irritable. Her impulse control and judgment and insight are extremely poor and she doesn't understand that she needs to accept her medications in order to gain control over her life and her mental illness. VITAL SIGNS: Stable NEW TEST RESULTS: None CURRENT MEDICATIONS: See below. MENTAL STATUS EXAMINATION: Patient is a is the [age]-year old female, who is agitated, defiant dressed in hospital clothes, guarded and defensive. Speech: Is pressured. Language skills are fair. Thought processes including: Irrational Thought content: Flight of ideas, delusional thoughts. Negative for suicidal ideation and negative for homicidal ideation . Abstract reasoning, and computation: Impaired. Description of associations: No loosening of associations. Description of abnormal or psychotic thoughts: Delusional, psychotic. Judgment: Extremely poor. Insight: Extremely poor. Orientation: Oriented to place and person but not to time. Recent and remote memory: And recent events is fair remote impaired due to mental illness. Attention span and concentration: Poor. Language: Fair. Fund of knowledge: Unable to assess the patient's mental illness. Mood: Elated. Affect: Irritable, angry. DIAGNOSES: 1. Bipolar disorder, most recent episode manic. 2. Poor impulse control. 3. Altered thoughts 4. Altered perceptions 5. Noncompliance ASSESSMENT: Patient is to gain insight into her illness and accept medications. Unfortunately she has been refusing to take her medications and she has become progressively more agitated and difficult staff and peers. She hasn't been physically aggressive, but she is verbally aggressive and defiant and her judgment is impaired and for that reason she walks into other patient's rooms, and at that point her behavior becomes a danger to herself, because peers have complained of her intrusiveness. MANAGEMENT PLAN: We will continue TOO process. She was scolded twice today and for the first, she was given 10 mg of Haldol, 2 mg of Ativan and 100 mg of Benadryl. For the second code she received 10 mg of Haldol, 1 mg of Cogentin and 2 mg of Ativan. Medications are not being effective in controlling her behavior. She she will probably benefit from Thorazine. TIME SPENT: 25 minutes. Vital Signs Vital Signs Date Time Temp Pulse Resp B/P Pulse Ox O2 Delivery O2 Flow Rate FiO2 10/15/16 06:30 98.6 104 20 114/57 Current Medications Current Medications Acetaminophen (Tylenol Tab) 650 mg Q6HP PRN PO HEADACHE or DISCOMFORT Last administered on 10/20/16 06:11; Start 10/07/16 at 00:15; Stop 11/06/16 at 00:14 Al Hydrox/Mg Hydrox/Simethicone (Mylanta) 30 ml Q4HP PRN PO HEARTBURN/ INDIGESTION Last administered on 10/11/16 19:01; Start 10/07/16 at 00:15; Stop 11/06/16 at 00:14 Aripiprazole (AbiLIFY) 10 mg QAM PO ; Start 10/08/16 at 09:00; Stop 11/07/16 at 08:59 Diphenhydramine HCl (Benadryl) 50 mg Q6HP PRN PO ANXIETY/AGITATION; Start 10/08 at 10:30; Stop 11/07/16 at 10:29 Haloperidol (Haldol) 5 mg Q6HP PRN PO AGITATION; Start 10/08/16 at 10:30; Stop 11/07/16 at 10:29 Home Med (Med Rec Complete!) ASDIRECTED XX ; Start 10/06/16 at 22:15; Stop at 22:15; Status DC Ketoconazole (Nizoral) 1 dose DAILYPRN PRN TOP ITCHING Last administered on 13:56; Start 10/11/16 at 09:00; Stop 11/10/16 at 08:59 Lorazepam (Ativan) 1 mg Q4HP PRN PO ANXIETY/AGITATION; Start 10/07/16 at 00:15; Stop 10/08/16 at 10:34; Status DC Lorazepam (Ativan) 2 mg Q6HP PRN PO ANXIETY/AGITATION; Start 10/08/16 at 10:30 ; Stop 10/21/16 at 10:29 Magnesium Hydroxide (Milk Of Magnesia) 30 ml DAILYPRN PRN PO CONSTIPATION Last administered on 10/18/16t 18:30; Start 10/07/16 at 00:15; Stop 11/06/16 at 00:14 Mupirocin (Bactroban 2% Ointment) 1 dose BID TOP Last administered on t 09:52; Start 10/08/16 at 09:00; Stop 11/07/16 at 08:59 Non-Formulary Medication ( See Comment Field Below ) SEE COMMENTS SECTION 1T @10 XX ; Start 10/10/16 at 10:00; Stop 10/11/16 at 09:59; Status UNV Non-Formulary Medication ( See Comment Field Below ) SEE LABEL COMMENTS DAILY XX ; Start 10/08/16 at 09:00; Stop 10/14/16 at 12:56; Status DC Non-Formulary Medication ( See Comment Field Below ) SEE LABEL COMMENTS SECTION 1T@10 XX ; Start 10/16/16 at 10:00; Stop 10/16/16 at 23:59; Status DC Trazodone HCl (Desyrel) 50 mg QHSP PRN PO INSOMNIA; Start 10/07/16 at 00:15; Stop 11/06/16 at 00:14 Allergies Coded Allergies: Iodine (Verified Allergy, Unknown, 09/23/16) Scallop (Verified Allergy, Unknown, 09/23/16) Shellfish Allergy (Verified Allergy, Unknown, 09/23/16) Olanzapine (Verified Adverse Reaction, Unknown, mikie feeling in arms, ) Risperidone (Verified Adverse Reaction, Unknown, feeling rigid in my legs , 09/23/16) PRADIP ALANIZ MD Oct 20, 2016 13:34
[2016-10-21] MEDS: ACETAMINOPHEN TAB 650MG DOSE (2X325MG) PO PRN ×3 (05:53→21:59)
[2016-10-21] MEDS: ARIPiprazole 10 MG TAB PO SCH (09:00)
[2016-10-21] MEDS: MUPIROCIN 2% OINT 22 GM TUBE TOP SCH ×2 (09:09→20:57)
[2016-10-21] MEDS: ANBESOL GEL 10% TOP PRN ×2 (16:23→20:54)
[2016-10-22] MEDS: ANBESOL GEL 10% TOP PRN (01:46)
[2016-10-22] MEDS: MUPIROCIN 2% OINT 22 GM TUBE TOP SCH ×2 (09:00→20:45)
[2016-10-22] MEDS: ARIPiprazole 10 MG TAB PO SCH (09:00)
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
--- NOTE | 2016-10-22 14:19 | IPN ---
DATE: 10/22/2016 Notes from Saturday indicated the patient was unable to abide by room restriction. She was described as severely manic, agitated, argumentative and profane, threatening staff and not redirectable. In addition, there were notes where she urinated on the floor herself by choice. Twice, the patient was offered oral medication but refused with profanity and required intramuscular medication. The patient continues today to be agitated and irritable, demanding discharge and threatening lawsuit. I am allowing the patient to go to [employer] groups, although she is unable to participate in any group that requires self control. The patient is irritated, threatening, though disordered. MENTAL STATUS EXAMINATION: Rapid speech, rapid thoughts. Loose associations. Circumferential and tangential thinking. Judgment and insight poor. The patient is fully oriented. Recent and remote memory intact. Attention and concentration are poor. Full fund of knowledge. Mood is irritable. Affect is elevated and labile. PLAN: Offered the patient oral medication, the patient continues to refuse. Treatment over objection continues in process. DIAGNOSIS: Bipolar disorder, manic type, chronic.
[2016-10-22] MEDS: MAALOX 30 ML SUSP *UDC PO PRN (18:54)
[2016-10-22] MEDS: ACETAMINOPHEN TAB 650MG DOSE (2X325MG) PO PRN (19:25)
[2016-10-23] MEDS: ACETAMINOPHEN TAB 650MG DOSE (2X325MG) PO PRN (07:54)
[2016-10-23] MEDS: ARIPiprazole 10 MG TAB PO SCH (07:54)
[2016-10-23] MEDS: MUPIROCIN 2% OINT 22 GM TUBE TOP SCH ×2 (07:55→21:00)
--- NOTE | 2016-10-23 10:56 | IPN ---
DATE: 10/23/2016 Patient continues to be agitated, irritable, demanding discharge, threatening law suit. She continues to refuse all her medications. The patient has been allowed to go to [employer] [facility] groups and is still unable to participate in any group that requires self control. The patient continues to be intrusive and irritated and thought disordered with rapid speech and tangential thought. It is my understanding that she will be going to court to discuss treatment over objection on Saturday. A second opinion by Dr. Mclaughlin has been dictated and signed. MENTAL STATUS EXAMINATION: Rapid speech. Rapid thoughts. Loose associations. Circumferential and tangential thinking. Poor judgment and insight. The patient is fully oriented. Recent and remote memory intact. Attention and concentration are poor. Full fund of knowledge. Mood is irritable. Affect is elevated and labile. PLAN: Continue to offer patient oral medication, but the patient continues to refuse. Treatment over objection hearing will occur on Saturday.
[2016-10-23] MEDS: ANBESOL GEL 10% TOP PRN (21:26)
[2016-10-24] MEDS: ANBESOL GEL 10% TOP PRN (06:55)
[2016-10-24] MEDS: ARIPiprazole 10 MG TAB PO SCH (08:51)
[2016-10-24] MEDS: MUPIROCIN 2% OINT 22 GM TUBE TOP SCH ×2 (08:51→21:00)
--- NOTE | 2016-10-24 10:29 | IPN ---
DATE OF SERVICE: 10/24/2016 Yun Montes presented to me today with a six-page letter. Although we had allowed her to go to groups yesterday since she seemed calmer, apparently she disrupted groups, and we had to stop her from attending groups today. She continues to refuse medication. I reviewed the treatment over objections. Speech is rapid. Thought processes illogical and circumferential. Loose associations circumferential thoughts as above. Judgment and insight are poor. Fully oriented. Recent and remote memory intact. Attention and concentration are normal. Note disturbance of language. Full fund of knowledge. Mood is elevated. Affect is labile. No change in treatment, as the patient refuses all medication treatment. MTDD
[2016-10-24] MEDS: ACETAMINOPHEN TAB 650MG DOSE (2X325MG) PO PRN (12:05)
[2016-10-25] MEDS: MUPIROCIN 2% OINT 22 GM TUBE TOP SCH ×2 (09:00→21:00)
[2016-10-25] MEDS: ARIPiprazole 10 MG TAB PO SCH ×2 (09:00→09:22)
[2016-10-25] MEDS: MOM 30ML SUSPENSION UDC PO PRN (09:21)
--- NOTE | 2016-10-25 11:26 | IPN ---
DATE: 10/25/2016 Yun Montes has again been removed from groups for being intrusive and disruptive. She continues when she asks questions to not accept any answers that do not agree with her and immediately pushes on with her subject and then changes the subject. Again, her attendance to groups had to be stopped again. She continues to refuse medication. I reviewed treatment over objections and will be meeting with the actuary clerk today. MENTAL STATUS EXAMINATION: Her speech is rapid. Her thought processes are logical and circumferential. She has loose associations. Her insight and judgment continue poor. She is fully oriented. Her recent and remote memory are intact. Attention and concentration are normal. Full fund of knowledge. Her mood is elevated. Her affect is labile. Patient refuses all medication treatment. DIAGNOSIS: Bipolar disorder with psychotic features.
[2016-10-25] MEDS: MAALOX 30 ML SUSP *UDC PO PRN (21:40)
[2016-10-26] MEDS: ACETAMINOPHEN TAB 650MG DOSE (2X325MG) PO PRN (00:53)
[2016-10-26] MEDS: MAALOX 30 ML SUSP *UDC PO PRN ×2 (04:46→08:55)
--- NOTE | 2016-10-26 06:24 | IPN ---
DATE: 10/26/2016 SUBJECTIVE: Yun Montes had 2-1/2 hours of sleep last night. This is typical for her. She is hyper verbal, discussing the proper way to use Maalox, and into performing her rendition of "dance like an [place]an." she continues to be unable to engage in social conversations but merely hyper talkative with no ability to respond to answers or take any limitations or disagreements. It is my understanding that I will be going to court with her today to discuss treatment over objection. MENTAL STATUS EXAMINATION: Her speech is rapid. Thought processes are illogical and circumferential. She has loose associations. Her insight and judgment continue poor. She is fully oriented. Her recent and remote memory are intact. Attention and concentration are normal. Judgment and insight exceptionally poor. Full fund of knowledge. Mood is elevated and her affect is labile, and she continues to refuse all medication and treatment. DIAGNOSIS: Bipolar disorder with psychotic features.
[2016-10-26] MEDS: MUPIROCIN 2% OINT 22 GM TUBE TOP SCH ×2 (08:53→21:00)
--- NOTE | 2016-10-26 14:02 | IPN ---
DATE: 10/26/2016 This morning, Yun Montes met with the administrative board to determine admission to [facility]. Patient was extremely interruptive and intrusive and the meeting had to be ended. I gave brief testimony.
[2016-10-26] MEDS ORDERED: HALOPERIDOL 5 MG/ML VIAL (J1630) IM STA (16:29)
[2016-10-26] MEDS ORDERED: HALOPERIDOL 5 MG/ML VIAL (J1630) IM PRN ×2 (17:00)
[2016-10-26] MEDS ORDERED: ARIPiprazole 10 MG TAB PO SCH (19:00)
[2016-10-27] MEDS: ACETAMINOPHEN TAB 650MG DOSE (2X325MG) PO PRN ×2 (04:08→22:08)
[2016-10-27] MEDS ORDERED: HALOPERIDOL 5 MG/ML VIAL (J1630) IM PRN (07:45)
[2016-10-27] MEDS: MUPIROCIN 2% OINT 22 GM TUBE TOP SCH ×2 (08:50→21:00)
[2016-10-27] MEDS ORDERED: ARIPiprazole 10 MG TAB PO SCH (09:00)
--- NOTE | 2016-10-27 15:08 | IPN ---
DATE: 10/27/2016 Yun Montes continues intrusive and aggressive this morning, demanding and inability to engage in conversation. I have moved her Abilify 10 mg in the morning to 9:00 in the morning and it is to be followed with Haldol 10 mg IM if patient refuses the Abilify. I may increase the Abilify to 15 mg. MENTAL STATUS: The patient is loud in speech. Associations are loose, tangential thinking, abnormal grandiose delusions, poor judgment and insight, poor orientation. Recent and remote memory intact. Attention and concentration are poor. No difficulties in language. Fund of knowledge is full, but distorted. Mood is irritable. Affect is angry. DIAGNOSIS: Bipolar disorder.
[2016-10-27] MEDS: MAALOX 30 ML SUSP *UDC PO PRN (18:33)
[2016-10-28] MEDS: MAALOX 30 ML SUSP *UDC PO PRN (04:13)
[2016-10-28] MEDS: MUPIROCIN 2% OINT 22 GM TUBE TOP SCH ×2 (08:58→20:58)
[2016-10-28] MEDS ORDERED: ARIPiprazole 10 MG TAB PO SCH (09:00)
[2016-10-28] MEDS ORDERED: ARIPiprazole 15 MG TAB (AbiLIFY) PO SCH ×2 (09:00)
--- NOTE | 2016-10-28 19:06 | IPN ---
DATE: 10/28/2016 Yun Montes continues under the process of treatment over objection. She has been accepting her oral medications. She continues hyper-talkative. She continues lacking insight. She continues to state that she can treat herself with her choices of homeopathic medications. She continues to not be insightful as to her repetitive talking and inability to assess other people's reactions. She was involved in conflict yesterday. She has continued to make other patients agitated. MENTAL STATUS EXAMINATION: Speech is rapid. Thought process continues with loose associations. Tangential. Circumferential. Her psychotic thoughts continue to be grandiose. Her judgment and insight are poor. She is fully oriented. Recent and remote memory intact. Attention and concentration poor. Her fund of knowledge is defective based on her delusions. Mood is high. Affect is somewhat less than expansive but not much. I have increased her Abilify now to 20 mg daily at 9:00 a.m. DIAGNOSIS: 1. Bipolar disorder, manic type.
[2016-10-29] MEDS ORDERED: ARIPiprazole 10 MG TAB PO SCH (09:00)
[2016-10-29] MEDS: MUPIROCIN 2% OINT 22 GM TUBE TOP SCH ×2 (09:00→21:00)
--- NOTE | 2016-10-29 11:27 | IPN ---
DATE OF SERVICE: 10/29/2016 Yun Montes was extremely disruptive on the unit yesterday, intrusive with other patients, and setting other patients off by going in their room, by constant talking. I have raised her Abilify dose this morning to 30 mg. The patient seems slightly more logical in her thinking, but she is angry and continues delusional, saying that she is going to be discharged despite anything you say to her, that she has called numerous agencies, that her brother is coming who has "brass tacks." In addition, she continues to make statements of loose associations and tangential thinking. She lacks insight at all into her situation and is not seeming to remember that she is going to be going to long-term care following her failure to communicate logically in her administrative meeting and her failure to go to court to debate her treatment over objection. MENTAL STATUS: Her speech continues rapid. Her thought process continues loose associations with tangential and circumferential thought. She continues to be grandiose with poor judgment and insight. She is fully oriented. Her attention and concentration are poor. Her ability to communicate with others is poor. She cannot seeming to listen or respond or discuss aspects of reality. Her fund of knowledge continues defective based on her delusions. Her mood is high but somewhat irritable and may be mildly less expansive but not much. She will be on Abilify 30 mg. DIAGNOSIS: Bipolar disorder, manic. The plan is to transfer to [facility].
[2016-10-29] MEDS ORDERED: HALOPERIDOL 5 MG/ML VIAL (J1630) IM STA ×2 (18:53→19:22)
[2016-10-29] MEDS ORDERED: LORazepam 2 MG/ML VIAL (J2060) IM ONE (19:00)
[2016-10-29] MEDS ORDERED: diphenhydrAMINE INJ 50MG/ML VIAL (J1200) IM ONE (19:00)
[2016-10-29] MEDS ORDERED: diphenhydrAMINE INJ 50MG/ML VIAL (J1200) IM STA (19:22)
[2016-10-29] MEDS ORDERED: LORazepam 2 MG/ML VIAL (J2060) IM STA (19:22)
--- NOTE | 2016-10-29 20:43 | IPN ---
DATE: 10/29/2016 Restraint documentation: Ms. Montes was out of her room most of the day yelling and becoming intrusive and aggressively approaching staff and patients. She is presently under treatment over objection order and it was required that she receive Haldol injection. She received a shot of Haldol 10 mg, 2 mg of Ativan and 50 mg of Benadryl. She continued to be disruptive and screaming and shouting and become in a thought disordered manner. It was necessary to repeat Haldol 10 mg, Benadryl 50 mg and Ativan 2 mg. She was not put in any type of mechanical restraint. She will continue to be observed. The plan is to change her standing treatment over objection medication of Abilify to Haldol.
[2016-10-29] MEDS: BENZTROPINE 1 MG TAB PO SCH (21:00)
[2016-10-29] MEDS: HALOPERIDOL 5 MG TAB PO SCH (21:00)
[2016-10-30 06:14] VITALS: BP 130/66
[2016-10-30] MEDS: BENZTROPINE 1 MG TAB PO SCH ×2 (09:00→21:00)
[2016-10-30] MEDS: HALOPERIDOL 5 MG TAB PO SCH ×2 (09:00→21:57)
[2016-10-30] MEDS ORDERED: ARIPiprazole 15 MG TAB (AbiLIFY) PO SCH (09:00)
[2016-10-30] MEDS: MUPIROCIN 2% OINT 22 GM TUBE TOP SCH ×2 (09:00→21:00)
--- NOTE | 2016-10-30 09:08 | IPN ---
DATE OF SERVICE: 10/30/2016 Yun Montes continues on the unit under a treatment over objection program. My evaluation of the use of Abilify in this patient having come from being notified that she had done well on it in the past is not optimal. I considered that Abilify seemed to not reduce her aaron and just made her dysphoric, manic, and angry. I did not see any other reduction in symptoms of a positive nature. The patient required coating due to her intrusiveness, yelling, and anger, and disruption, and I have begun to reduce her Abilify from 30 mg daily to 15 mg daily and have begun her on Haldol 15 mg twice a day and Cogentin 1 mg twice a day. We will observe and are continuing this treatment as per the court as per instructions of treatment over objection. It is my understanding that she will be going to long-term care. MENTAL STATUS: Speech was rapid yesterday. Thought processes illogical, circumferential, and tangential. She had loose associations, grandiose delusions, poor judgment and insight. Fully oriented. Recent and memory distorted. Attention and concentration poor. Fund of knowledge poor. Mood was irritable. Affect was angry. This morning, she seems to be much quieter, and we will continue engage in treatment over objection protocol. DIAGNOSIS: Bipolar disorder, manic type.
[2016-10-31] MEDS: MUPIROCIN 2% OINT 22 GM TUBE TOP SCH ×2 (09:00→21:00)
[2016-10-31] MEDS ORDERED: HALOPERIDOL 5 MG/ML VIAL (J1630) IM PRN (09:00)
[2016-10-31] MEDS: HALOPERIDOL 10 MG TAB PO SCH ×2 (09:18→21:37)
[2016-10-31] MEDS: BENZTROPINE 1 MG TAB PO SCH ×2 (09:18→21:37)
--- NOTE | 2016-10-31 12:32 | IPN ---
DATE: 10/31/2016 Yun's Abilify has been discontinued. She is now on a regimen of Haldol. No significant side effects noted. Present dose includes 20 mg twice a day of oral Haldol, 20 mg IM as needed if the patient refuses her oral treatment. This has not been a significant problem as the patient generally after some convincing takes her medication. MENTAL STATUS: The patient's aaron seems to be decreasing. Her speech is less rapid. Her thoughts processes are still scattered, but less so. Her associations still loose, but less so. She still has grandiose thoughts. Judgment and insight continue to be exceptionally poor. She is fully oriented. Her remote and recent memory are difficult to determine because of her delusional material. Attention and concentration poor. No disturbance of language. Her fund of knowledge is fair. She has many ideas that are not provable. She has many conceptual ideas of the law and of what will happen with her that she is going to be discharged. She is in contact apparently with numerous agencies over the phone. Mood is certainly less high, almost euthymic, and affect is irritated. Haldol seems to be much more effective than Abilify and was mentioned as a treatment in the treatment over objection rulings. As patient stabilizes, the Haldol dose can be most likely decreased and Depakote was also as part of the treatment over objection. She also is on line to be transferred to [place] when that occurs. DIAGNOSIS: Bipolar disorder, manic type, chronic. [facility]
[2016-10-31] MEDS: MOM 30ML SUSPENSION UDC PO PRN (19:37)
[2016-10-31] MEDS: ACETAMINOPHEN TAB 650MG DOSE (2X325MG) PO PRN (19:38)
[2016-11-01] MEDS: MAALOX 30 ML SUSP *UDC PO PRN (04:35)
[2016-11-01] MEDS: ACETAMINOPHEN TAB 650MG DOSE (2X325MG) PO PRN ×2 (04:39→21:44)
[2016-11-01] MEDS ORDERED: DIVALPROEX 500MG *ER* TAB PO SCH ×2 (09:00→21:00)
[2016-11-01] MEDS: BENZTROPINE 1 MG TAB PO SCH ×2 (10:45→20:46)
[2016-11-01] MEDS: HALOPERIDOL 10 MG TAB PO SCH ×2 (10:45→20:46)
[2016-11-01] MEDS: MUPIROCIN 2% OINT 22 GM TUBE TOP SCH ×3 (10:52→22:41)
--- NOTE | 2016-11-01 12:59 | IPN ---
DATE: 11/01/2016 This patient is presently under treatment over objection regimen and has also been before the administrative board for manager terminal treatment. Despite her oral Haldol doses of 20 mg twice a day, the patient still continues manic and intrusive. Her general pattern is rapid speech and inability to take any answer or discussion from whoever she is conversing with over medication or placement issues.. I was notified today that her dimpling machine operator failed to notify the court that she was here. She had charges against her and now I am understanding that she has a warrant out for her arrest. MENTAL STATUS: The patient's aaron no longer seems to be decreasing. Her speech is slightly less rapid. Her thought processes are still scattered. Her associations are not loose. She has grandiose thoughts with very poor judgment and insight. She is fully oriented. It is difficult to determine her remote and recent memory due to her delusional material. Her attention and concentration are poor. She is unable to engage in any type of back and forth conversation with staff. Her fund of knowledge is fair. Her mood is slightly less high. Her affect is irritated. It should be noted that Abilify made her dysphoric, manic and did not improve her condition despite its dose. Treatment over objection also allows for use of Depakote, but it has not been initiated yet. DIAGNOSIS: Bipolar disorder, manic type. PLAN: retirement treatment and eventual depot doses of neuroleptic. Initiation of Depakote may be recommended. MTDD
[2016-11-01] MEDS: DIVALPROEX SPRINKLE 125 MG CAP PO SCH (20:47)
--- NOTE | 2016-11-02 07:52 | IPN ---
DATE: 11/02/2016 The patient's manias is beginning to decrease. Her speech is much more normal rate and rhythm. She is apparently less intrusive both to staff and to the patients. She is requesting a reduction of her Haldol but she is cooperating with the initiation of Depakote sprinkles. Today, her speech was noted to be less rapid and she was able to engage in a back and forth discussion. As I mentioned yesterday, apparently according to management planner, her high pressure kettle operator failed to notify the court that she was here and there may be a warrant out for her arrest. Plans have been made for long-term care for her and despite all of our efforts, of course, she is and has a history of noncompliance. Thus, her long-term prognosis continues poor. Today her mental status: Speech is slightly less rapid. Her thought processes less scattered. Her associations less loose. No grandiose statements today. Judgment and insight improving. Fully oriented. Attention and concentration are slightly improving and she was able, this morning to engage in a mildly back and forth conversation, which has never occurred. Her fund of knowledge is fair. Her mood is slightly less elevated. Present medications are Haldol 25 twice a day and Depakote sprinkles 500 twice a day. Depakote level will need to be drawn, perhaps by Saturday. No other change of plans with this patient. I will reduce her Haldol to 20 mg. BID DIAGNOSIS: Bipolar disorder, manic type. MTDD
[2016-11-02] MEDS: MUPIROCIN 2% OINT 22 GM TUBE TOP SCH ×2 (09:00→20:38)
[2016-11-02] MEDS: DIVALPROEX SPRINKLE 125 MG CAP PO SCH ×2 (09:01→20:35)
[2016-11-02] MEDS: BENZTROPINE 1 MG TAB PO SCH ×2 (09:24→20:35)
[2016-11-02] MEDS: HALOPERIDOL 10 MG TAB PO SCH ×2 (09:24→20:37)
[2016-11-02] MEDS: MAALOX 30 ML SUSP *UDC PO PRN (16:27)
[2016-11-02] MEDS: ACETAMINOPHEN TAB 650MG DOSE (2X325MG) PO PRN (22:19)
[2016-11-03] MEDS: MUPIROCIN 2% OINT 22 GM TUBE TOP SCH ×2 (09:00→21:00)
[2016-11-03] MEDS ORDERED: HALOPERIDOL 10 MG TAB PO SCH (09:00)
[2016-11-03] MEDS: BENZTROPINE 1 MG TAB PO SCH ×2 (09:08→22:11)
[2016-11-03] MEDS: DIVALPROEX SPRINKLE 125 MG CAP PO SCH ×2 (09:09→22:08)
[2016-11-03] MEDS: HALOPERIDOL 10 MG TAB PO SCH ×2 (09:11→22:10)
[2016-11-04] MEDS: MUPIROCIN 2% OINT 22 GM TUBE TOP SCH ×2 (09:00→21:00)
[2016-11-04] MEDS: BENZTROPINE 1 MG TAB PO SCH ×2 (09:10→21:00)
[2016-11-04] MEDS: HALOPERIDOL 10 MG TAB PO SCH ×2 (09:11→21:22)
[2016-11-04] MEDS: DIVALPROEX SPRINKLE 125 MG CAP PO SCH ×2 (09:14→21:15)
[2016-11-05] MEDS: ACETAMINOPHEN TAB 650MG DOSE (2X325MG) PO PRN (06:42)
[2016-11-05] MEDS: MUPIROCIN 2% OINT 22 GM TUBE TOP SCH ×2 (09:00→21:00)
[2016-11-05] MEDS: BENZTROPINE 1 MG TAB PO SCH ×2 (09:00→21:00)
[2016-11-05] MEDS ORDERED: HALOPERIDOL 5 MG/ML VIAL (J1630) IM PRN (11:15)
[2016-11-05] MEDS: HALOPERIDOL 5 MG TAB PO SCH ×2 (11:29→23:07)
[2016-11-05] MEDS: DIVALPROEX SPRINKLE 125 MG CAP PO SCH ×2 (11:32→21:00)
--- NOTE | 2016-11-05 15:23 | IPN ---
DATE: 11/05/2016 A 61-year-old female with history of schizophrenia and bipolar disorder admitted because of psychotic break, paranoia, disorganized thinking, and manic-like behavior. The patient continues presenting with manic-like symptoms. SUBJECTIVE: "I don't want to take the Haldol." OBJECTIVE: The patient continues presenting with manic-like symptoms, has rapid speech, has very poor attention and concentration, very poor insight. The patient reports that Haldol is giving her side effects and she does not want to take it. The patient continues delusional. MENTAL STATUS EXAMINATION: The patient is dressed in [facility]. Poor eye contact. Speech is pressured. Mood is manic, anxious. Affect is labile and congruent with mood. The patient continues paranoid. No auditory or visual hallucinations. Memory, attention, and concentration are significantly impaired. Insight and judgment is poor. ASSESSMENT: 1. Bipolar disorder, manic episode. 2. Paranoia. PLAN: 1. Decrease Haldol to 10 mg by mouth twice a day. 2. Continue Cogentin 1 mg by mouth twice a day. 3. We will get a Depakote level and comprehensive metabolic panel (CMP) in the morning.
[2016-11-06] MEDS: DIVALPROEX SPRINKLE 125 MG CAP PO SCH ×2 (10:00→21:47)
[2016-11-06] MEDS: BENZTROPINE 1 MG TAB PO SCH ×2 (10:03→21:47)
[2016-11-06] MEDS: MUPIROCIN 2% OINT 22 GM TUBE TOP SCH ×2 (10:03→21:00)
[2016-11-06] MEDS: HALOPERIDOL 5 MG TAB PO SCH ×2 (10:03→21:47)
[2016-11-06] MEDS ORDERED: PHYTONADIONE 5 MG TAB PO ONE (20:00)
--- NOTE | 2016-11-06 21:02 | IPN ---
DATE: 11/06/2016 61-year-old woman with bipolar disorder who came in with a psychotic break with paranoia, disorganizing thinking, manic behavior. "I want a court hearing." OBJECTIVE: The patient continues delusional, paranoid, manic, talkative with very poor attention and concentration and has very little insight. The patient does not understand well the legal process and is requesting a medical hearing when was held shortly ago and it was decided to keep the patient in the hospital and treatment over objection was granted. MENTAL STATUS EXAMINATION: The patient is dressed in [facility]. The patient is uncooperative, manic, talkative with pressured speech, jumping from subject to subject with flight of ideas. Mood is manic. Affect is labile, at times angry. The patient is paranoid and delusional. Memory, thinking and concentration are severely impaired. Insight and judgment are very poor. ASSESSMENT: Bipolar disorder, manic episode and paranoia. RECOMMENDATIONS: Continue Haldol 10 mg by mouth. Continue Cogentin 2 mg by mouth twice a day. Continue with Depakote 500 mg by mouth twice a day. We will try to get a Depakote level in the morning, since the patient refused laboratories today.
[2016-11-07] MEDS: BENZTROPINE 1 MG TAB PO SCH ×2 (09:00→20:40)
[2016-11-07] MEDS: MUPIROCIN 2% OINT 22 GM TUBE TOP SCH ×2 (09:00→20:44)
[2016-11-07 09:02] LABS: ALBUMIN 3.2 GM/DL (3.2-5.2); ALBUMIN/GLOBULIN RATIO 0.94 (1.00-1.93); ALKALINE PHOSPHATASE 86 U/L (45-117); ALT/SGPT 32 U/L (12-78); ANION GAP 8 MEQ/L (8-16); AST/SGOT 13 U/L (15-37); BILIRUBIN,TOTAL 0.4 MG/DL (0.2-1.0); BLOOD UREA NITROGEN 14 MG/DL (7-18); CALCIUM LEVEL 8.8 MG/DL (8.8-10.2); CARBON DIOXIDE LEVEL 28 MEQ/L (21-32); CHLORIDE LEVEL 104 MEQ/L (98-107); CREATININE FOR GFR 0.93 MG/DL (0.55-1.02); GLOMERULAR FILTRATION RATE > 60.0 (>45); GLUCOSE, FASTING 180 MG/DL (80-110); POTASSIUM SERUM 4.2 MEQ/L (3.5-5.1); SODIUM LEVEL 140 MEQ/L (136-145); TOTAL PROTEIN 6.6 GM/DL (6.4-8.2)
[2016-11-07] MEDS: HALOPERIDOL 5 MG TAB PO SCH ×2 (10:02→20:40)
[2016-11-07] MEDS: DIVALPROEX SPRINKLE 125 MG CAP PO SCH (10:03)
[2016-11-07 18:00] VITALS: BP 142/80
[2016-11-07] MEDS: VALPROIC ACID SYRUP 250 MG/5 ML UDC PO SCH (20:40)
[2016-11-07] MEDS ORDERED: DIVALPROEX 250 MG TAB PO SCH (21:00)
[2016-11-08] MEDS: MUPIROCIN 2% OINT 22 GM TUBE TOP SCH ×2 (09:00→21:00)
[2016-11-08] MEDS: BENZTROPINE 1 MG TAB PO SCH ×2 (09:00→21:00)
[2016-11-08] MEDS: VALPROIC ACID SYRUP 250 MG/5 ML UDC PO SCH ×2 (09:37→21:59)
[2016-11-08] MEDS: HALOPERIDOL 5 MG TAB PO SCH ×2 (09:44→22:00)
--- NOTE | 2016-11-08 11:02 | IPN ---
DATE OF SERVICE: 11/07/2016 61-year-old female with history of bipolar disorder, admitted with a psychotic break, paranoia, disorganized thinking, and manic behavior. SUBJECTIVE: "I want a court hearing." OBJECTIVE: Patient continues to be very delusional, paranoid, manic, talkative with very poor attention and concentration. Patient has a very poor understanding of the legal process. Patient has allowed labs this morning. Her complete metabolic profile (CMP) is within normal limits except a fasting glucose of 180. Her valproic level is 67.5. She is stating that she is not going to take Depakote anymore because she wants to be treated with homeopathic remedies. MENTAL STATUS EXAMINATION: Patient is dressed in hospital clothes, is irritable with poor eye contact, pressured speech, manic, labile, angry, delusional, paranoid. Memory, attention and concentration are severely affected. Insight and judgment is very poor. ASSESSMENT: Bipolar disorder, manic episode. PLAN: 1. Haldol 10 mg by mouth twice a day. 2. Cogentin 2 mg by mouth twice a day. 3. Increase Depakote to 750 mg by mouth twice a day. 4. Continue close monitoring.
--- NOTE | 2016-11-08 22:30 | IPN ---
DATE: 11/08/2016 A 61-year-old female with a history of bipolar disorder, admitted due to a psychotic break, paranoia, disorganized thinking, and manic behavior. SUBJECTIVE: "I want to get out of here." OBJECTIVE: No major changes. Patient continues manic, agitated with very low insight. Patient is intrusive, has flight of ideas, is delusional, paranoid, and has to be redirected frequently. Patient is taking the medications as prescribed for the last couple of days. MENTAL STATUS EXAMINATION: Patient dressed in hospital clothes, unkempt, irritable, impulsive, poor eye contact, pressured speech, manic, labile, angry, delusional, paranoid. Memory, attention, and concentration are severely impaired. Insight and judgment are fairly poor. ASSESSMENT: Bipolar disorder, manic episode. PLAN: 1. Haldol 10 mg by mouth twice a day. 2. Cogentin 2 mg by mouth twice a day. 3. Depakote 750 mg by mouth twice a day. 4. Continue close monitoring.
[2016-11-09] MEDS: MUPIROCIN 2% OINT 22 GM TUBE TOP SCH ×2 (09:00→21:00)
[2016-11-09] MEDS: BENZTROPINE 1 MG TAB PO SCH ×2 (09:00→21:33)
[2016-11-09] MEDS: HALOPERIDOL 5 MG TAB PO SCH ×2 (09:35→21:33)
[2016-11-09] MEDS: VALPROIC ACID SYRUP 250 MG/5 ML UDC PO SCH ×2 (09:36→21:33)
--- NOTE | 2016-11-09 21:15 | IPN ---
DATE: 11/09/2016 HISTORY: 61-year-old female with history of bipolar disorder, admitted to our unit for a manic episode, paranoia, and disorganized thinking. SUBJECTIVE: "I'm not gonna take your medications." OBJECTIVE: The patient continues manic, agitated at times, intrusive with flight of ideas, delusional and paranoid. The patient has been taking Depakote and Haldol consistently for the last three days. MENTAL STATUS EXAMINATION: The patient is dressed in hospital clothes, unkempt, irritable, impulsive. Poor eye contact. Pressured speech. Manic, labile, angry, delusional, paranoid. Memory, attention, and concentration are severely impaired. Insight and judgment are poor. ASSESSMENT: Bipolar disorder, manic episode. PLAN: 1. Haldol 10 mg by mouth twice a day. 2. Cogentin 2 mg by mouth twice a day. 3. Depakote 750 mg by mouth twice a day. 4. Continue close monitoring.
[2016-11-10] MEDS: BENZTROPINE 1 MG TAB PO SCH ×3 (09:00→23:18)
[2016-11-10] MEDS: MUPIROCIN 2% OINT 22 GM TUBE TOP SCH ×3 (09:00→23:19)
[2016-11-10] MEDS: VALPROIC ACID SYRUP 250 MG/5 ML UDC PO SCH ×2 (09:38→23:18)
[2016-11-10] MEDS: HALOPERIDOL 5 MG TAB PO SCH ×2 (09:39→23:18)
[2016-11-10] MEDS: MAALOX 30 ML SUSP *UDC PO PRN (19:35)
[2016-11-11] MEDS: BENZTROPINE 1 MG TAB PO SCH ×2 (09:00→21:00)
[2016-11-11] MEDS: HALOPERIDOL 5 MG TAB PO SCH ×2 (10:03→21:39)
[2016-11-11] MEDS: VALPROIC ACID SYRUP 250 MG/5 ML UDC PO SCH ×2 (10:03→21:39)
[2016-11-11] MEDS: MOM 30ML SUSPENSION UDC PO PRN (16:43)
[2016-11-11] MEDS: MUPIROCIN 2% OINT 22 GM TUBE TOP SCH (20:57)
[2016-11-12] MEDS: MUPIROCIN 2% OINT 22 GM TUBE TOP SCH ×2 (09:00→21:00)
[2016-11-12] MEDS: BENZTROPINE 1 MG TAB PO SCH ×2 (09:00→21:00)
[2016-11-12] MEDS: VALPROIC ACID SYRUP 250 MG/5 ML UDC PO SCH ×2 (09:44→21:35)
[2016-11-12] MEDS: HALOPERIDOL 5 MG TAB PO SCH ×2 (09:44→21:35)
--- NOTE | 2016-11-12 16:20 | IPN ---
DATE: 11/12/2016 HISTORY: A 61-year-old female with history of bipolar disorder, admitted to our unit for treatment of a manic episode, paranoia, and disorganized behavior and thinking. SUBJECTIVE: "I don't want to go to [facility]." OBJECTIVE: No major changes, although she is compliant with the medication for several days in a row. The patient continues manic, agitated at times, intrusive with flight of ideas, delusional and paranoid. MENTAL STATUS EXAMINATION: The patient is dressed in hospital clothes. She is unkempt and dirty, irritable, impulsive, with poor eye contact. Pressured speech. Manic, labile, angry, delusional and paranoid. Memory, attention and concentration are impaired. Insight and judgment are poor. ASSESSMENT: Bipolar disorder, manic episode. PLAN: 1. Haldol 10 mg by mouth twice a day. 2. Cogentin 2 mg by mouth twice a day. 3. Depakote 750 mg by mouth twice a day. 4. Continue close monitoring.
[2016-11-13] MEDS: BENZTROPINE 1 MG TAB PO SCH ×2 (09:00→21:51)
[2016-11-13] MEDS: MUPIROCIN 2% OINT 22 GM TUBE TOP SCH ×2 (09:00→21:00)
[2016-11-13] MEDS: HALOPERIDOL 5 MG TAB PO SCH (10:16)
[2016-11-13] MEDS: VALPROIC ACID SYRUP 250 MG/5 ML UDC PO SCH ×2 (10:21→21:51)
--- NOTE | 2016-11-13 15:32 | IPN ---
DATE: 11/13/2016 A 61-year-old female with history of bipolar disorder, admitted to our unit in full manic episode, paranoia, disorganized behavior and thinking. SUBJECTIVE: "I don't want the Haldol." OBJECTIVE: The patient is improving very slowly. The patient is tolerating well the medication. The patient is manic and needs redirection. She is intrusive at times. She continues to have paranoid and grandiose delusions and very poor judgment and insight. MENTAL STATUS EXAMINATION: The patient is dressed in [facility]. The patient is unkempt, is impulsive at times, has pressured speech, is paranoid and grandiose. Attention and concentration are impaired. Insight and judgment are very poor. ASSESSMENT: Bipolar disorder, manic episode. PLAN: 1. Decrease Haldol to 10 mg by mouth at bedtime and 5 mg by mouth every morning. 2. Depakote 750 mg by mouth twice a day. 3. Cogentin 2 mg by mouth twice a day. 4. Continue close monitoring.
[2016-11-13] MEDS: HALOPERIDOL 10 MG TAB PO SCH (21:51)
[2016-11-14] MEDS: MUPIROCIN 2% OINT 22 GM TUBE TOP SCH ×2 (09:00→21:00)
[2016-11-14] MEDS: BENZTROPINE 1 MG TAB PO SCH ×2 (09:00→21:00)
[2016-11-14] MEDS: HALOPERIDOL 5 MG TAB PO SCH (09:43)
[2016-11-14] MEDS: VALPROIC ACID SYRUP 250 MG/5 ML UDC PO SCH ×2 (09:44→23:20)
--- NOTE | 2016-11-14 16:29 | IPN ---
DATE: 11/14/2016 61-year-old female with history of bipolar disorder admitted in our unit for manic episodes with disorganized behavior and thinking, paranoid and grandiose. SUBJECTIVE: "I do not need the medicine". OBJECTIVE: The patient is improving very slowly. She continues manic, grandiose, delusional, and paranoid, but she appears to have better self control and identifies when she is intrusive and disruptive. The patient continues with very low insight and requesting to be taken off the medication and only take homeopathic medicines. MENTAL STATUS EXAM: The patient is dressed in [facility]. The patient is unkempt, impulsive at times. Has pressured speech. Has paranoid and grandiose delusions. Attention and concentration are impaired. Insight and judgment are very poor. ASSESSMENT: Bipolar, manic episode. PLAN: 1. Continue Haldol 5 mg by mouth every a.m. and 10 mg by mouth at bedtime. 2. Continue Depakote 750 mg by mouth twice a day. 3. Continue cogentin 2 mg by mouth twice a day. 4. Continue close observation.
[2016-11-14] MEDS: MAALOX 30 ML SUSP *UDC PO PRN (19:06)
[2016-11-14] MEDS: HALOPERIDOL 10 MG TAB PO SCH (23:20)
[2016-11-15] MEDS: MUPIROCIN 2% OINT 22 GM TUBE TOP SCH (09:00)
[2016-11-15] MEDS: BENZTROPINE 1 MG TAB PO SCH (09:00)
[2016-11-15] MEDS: VALPROIC ACID SYRUP 250 MG/5 ML UDC PO SCH (09:47)
[2016-11-15] MEDS: HALOPERIDOL 5 MG TAB PO SCH (09:47)
--- NOTE | 2016-11-15 10:44 | MHDS ---
DATE OF ADMISSION: 10/07/2016 DATE OF DISCHARGE: 11/15/2016 HISTORY OF PRESENT ILLNESS: The following information is according to the initial evaluation of Dr. Katz, her progress note and my own progress note. On 10/07/2016, Dr. Katz wrote, "This is a 61-year-old white woman with a history of schizophrenia and chronic noncompliance who was admitted after she was brought by the police. She had been accosting people in the street and saying she wanted to eat people and cut off peoples ears. She was disheveled. Her thinking was very disorganized. She could not really answer appropriately any questions. I am not really able to get much of the history from either. Mostly, I am getting word salad and really cannot make out anything". Labs on admission: CBC was unremarkable. CMP was within normal limits. TSH was within normal limits. UDS was negative and blood alcohol level was negative. HOSPITAL COURSE: The patient was admitted displaying manic behavior, irritable, impulsive, paranoid, grandiose needing redirection constantly. She was refusing all medication. She had no insight about her psychiatric illness. A petition to the court for treatment over objection was done and also for retention. Both were granted. She started taking Haldol 15 mg by mouth twice a day on 11/01/[address] recommended. Since then, she has been compliant with the medication. At this time, she is on Haldol 5 mg by mouth every a.m. and 10 mg by mouth nightly, Cogentin 2 mg by mouth twice a day and Depakote 750 mg by mouth twice a day. The patient has been improving slowing since she has been taking the medication. However, she continues to be manic, grandiose, delusional in need of redirection but she is no longer agitated. At times, she can recognized that she is intrusive. She is sleeping better with the help of the medication. A bed became available at [facility] on 11/15/2016 and we will transfer the patient to continue her treatment and stabilization. The patient had no medical complication during this hospital admission. The patient is tolerating the medications well, although she thinks that what she needs is to take herbal remedies and homeopathic medications. DISCHARGE MEDICATIONS: - Depakote 750 mg by mouth twice a day - Haldol 5 mg by mouth every morning and 10 mg by mouth nightly. - Cogentin 1 mg by mouth twice a day. MENTAL STATUS EXAMINATION AT DISCHARGE: The patient is dressed in casual clothes. The patient is disheveled partially cooperative. Speech is pressured, talkative. Has fair eye contact but intense. Mood is manic. Affect is intense, labile. Patient is oriented to time, place, person, and situation. Memory, attention and concentration are impaired. Thought process has tangentiality and flight of ideas. There is no evidence of auditory or visual hallucination. The patient has paranoid and grandiose delusions. The patient is denying suicidal or homicidal ideation. Judgment and insight is poor. DIAGNOSES: AXIS I: Bipolar disorder manic episode. AXIS II: Deferred. AXIS III: Hypertension, hypercholesterolemia. PLAN: The patient will be transferred to [facility] to continue her treatment at their facility.
== END 2016-11-15 14:10 | disposition short-term general hospital (02) | DRG 885 ==
LOC: M ED 22:20 → M ED INP 10-07 00:04 → M PSY 10-07 01:07
PROVIDERS: ADMIT Psychiatry & Neurology Psychiatry; ATTEND Psychiatry & Neurology Psychiatry
DX: F31.9 Bipolar disorder, unspecified (principal); I10 Essential (primary) hypertension; E78.00 Pure hypercholesterolemia, unspecified; F17.210 Nicotine dependence, cigarettes, uncomplicated; R94.31 Abnormal electrocardiogram [ECG] [EKG]; L98.9 Disorder of the skin and subcutaneous tissue, unspecified; Z79.899 Other long term (current) drug therapy; Z91.19 Patient's noncompliance with other medical treatment and regimen; Z80.7 Family history of other malignant neoplasms of lymphoid, hematopoietic and related tissues; Z91.013 Allergy to seafood; Z88.8 Allergy status to other drugs, medicaments and biological substances

== ENCOUNTER 2017-06-17 15:50 | Inpatient (IN) | payer MEDICARE, MEDICAID ==
[2017-06-17] MEDS: diphenhydrAMINE INJ 50MG/ML VIAL (J1200) IM (16:48)
[2017-06-17] MEDS: LORazepam 2 MG/ML VIAL (J2060) IM (16:48)
[2017-06-17] MEDS: HALOPERIDOL 5 MG/ML VIAL (J1630) IM (16:48)
[2017-06-17 17:52] LABS: HEMATOCRIT 36.8 % (36.0-47.0); HEMOGLOBIN 11.8 g/dl (12.0-16.0); MEAN CORPUSCULAR HEMOGLOBIN 27.3 pg (27.0-33.0); MEAN CORPUSCULAR HGB CONC 32.1 g/dl (32.0-36.5); MEAN CORPUSCULAR VOLUME 85.2 fl (80.0-96.0); PLATELET COUNT, AUTOMATED 295 10^3/uL (150-450); RED BLOOD COUNT 4.32 10^6/uL (4.00-5.40); WHITE BLOOD COUNT 7.5 10^3/uL (4.0-10.0)
[2017-06-17] MEDS ORDERED: HALOPERIDOL 5 MG TAB PO (18:15)
[2017-06-17] MEDS ORDERED: traZODone 50 MG TAB PO (18:15)
[2017-06-17] MEDS ORDERED: MOM 30ML SUSPENSION UDC PO (18:15)
[2017-06-17 18:25] LABS: ACETAMINOPHEN LEVEL < 2.0 UG/ML (10.0-30.0); ALBUMIN 3.6 GM/DL (3.2-5.2); ALBUMIN/GLOBULIN RATIO 1.09 (1.00-1.93); ALKALINE PHOSPHATASE 81 U/L (45-117); ALT/SGPT 32 U/L (12-78); ANION GAP 10 MEQ/L (8-16); AST/SGOT 23 U/L (7-37); BILIRUBIN,DIRECT < 0.1 MG/DL (0.0-0.2); BILIRUBIN,TOTAL 0.3 MG/DL (0.2-1.0); BLOOD UREA NITROGEN 10 MG/DL (7-18); CALCIUM LEVEL 8.7 MG/DL (8.8-10.2); CARBON DIOXIDE LEVEL 26 MEQ/L (21-32); CHLORIDE LEVEL 105 MEQ/L (98-107); CREATININE FOR GFR 0.74 MG/DL (0.55-1.02); ETHYL ALCOHOL (ETHANOL) < 0.003 % (0.000-0.010); GLOMERULAR FILTRATION RATE > 60.0 (>45); GLUCOSE, FASTING 122 MG/DL (80-110); POTASSIUM SERUM 3.8 MEQ/L (3.5-5.1); SALICYLATE LEVEL 2.4 MG/DL (5.0-30.0); SODIUM LEVEL 141 MEQ/L (136-145); TOTAL PROTEIN 6.9 GM/DL (6.4-8.2)
[2017-06-17 20:26] LABS: AMPHETAMINES LEVEL URINE NEGATIVE (NEGATIVE); BARBITURATES URINE NEGATIVE (NEGATIVE); BENZODIAZEPINES URINE NEGATIVE (NEGATIVE); CANNABINOIDS URINE NEGATIVE (NEGATIVE); COCAINE METABOLITE URINE NEGATIVE (NEGATIVE); METHADONE URINE NEGATIVE (NEGATIVE); OPIATES URINE NEGATIVE (NEGATIVE); PHENCYCLIDINE URINE NEGATIVE (NEGATIVE)
[2017-06-17] MEDS: HALOPERIDOL 5 MG TAB PO (21:00)
[2017-06-17] MEDS: BENZTROPINE 2 MG TAB PO (21:00)
[2017-06-18] MEDS: BENZTROPINE 2 MG TAB PO ×2 (08:55→20:21)
[2017-06-18] MEDS: HALOPERIDOL 5 MG TAB PO (08:55)
[2017-06-18] MEDS: ACETAMINOPHEN TAB 650MG DOSE (2X325MG) PO ×3 (10:30→22:32)
[2017-06-18] MEDS: HALOPERIDOL 10 MG TAB PO ×3 (12:04→20:21)
[2017-06-18] MEDS: MAALOX 30 ML SUSP *UDC PO ×2 (18:15→21:53)
[2017-06-19] MEDS: CEPACOL LOZENGE PO (01:45)
[2017-06-19] MEDS: **PENDING PPD ENTRY XX (09:00)
[2017-06-19] MEDS: BENZTROPINE 2 MG TAB PO ×2 (09:00→21:00)
[2017-06-19] MEDS: HALOPERIDOL 10 MG TAB PO ×4 (09:00→21:00)
[2017-06-19] MEDS: MAALOX 30 ML SUSP *UDC PO ×2 (09:13→23:12)
[2017-06-19] MEDS: ACETAMINOPHEN TAB 650MG DOSE (2X325MG) PO ×2 (09:25→23:12)
[2017-06-20] MEDS: BENZTROPINE 2 MG TAB PO ×2 (09:00→22:44)
[2017-06-20] MEDS: HALOPERIDOL 10 MG TAB PO ×6 (09:00→22:44)
[2017-06-20] MEDS: **PENDING PPD ENTRY XX (09:00)
[2017-06-20] MEDS ORDERED: TUBERCULIN PPD 5 UNITS/0.1 ML ID (10:00)
[2017-06-20] MEDS: LORazepam 1 MG TAB PO ×2 (14:12→22:44)
[2017-06-20] MEDS: diphenhydrAMINE 25 MG CAP PO ×2 (14:12→22:44)
[2017-06-20] MEDS: CEPACOL LOZENGE PO (14:51)
[2017-06-20] MEDS: diphenhydrAMINE CREAM 30GM TOP (20:02)
[2017-06-20] MEDS: MAALOX 30 ML SUSP *UDC PO (20:04)
[2017-06-20] MEDS: HALOPERIDOL 5 MG/ML VIAL (J1630) IM (22:15)
[2017-06-20] MEDS: diphenhydrAMINE INJ 50MG/ML VIAL (J1200) IM (22:15)
[2017-06-20] MEDS: LORazepam 2 MG/ML VIAL (J2060) IM (22:15)
[2017-06-21] MEDS: BENZTROPINE 2 MG TAB PO ×2 (09:00→21:00)
[2017-06-21] MEDS: **PENDING PPD ENTRY XX (09:00)
[2017-06-21] MEDS: HALOPERIDOL 10 MG TAB PO ×4 (09:00→21:00)
[2017-06-21] MEDS ORDERED: PPD DOCUMENTATION ENTRY MISC XX (10:00)
[2017-06-21] MEDS: MAALOX 30 ML SUSP *UDC PO (19:23)
[2017-06-21] MEDS: ACETAMINOPHEN TAB 650MG DOSE (2X325MG) PO (19:26)
[2017-06-22] MEDS: diphenhydrAMINE CREAM 30GM TOP ×3 (03:17→19:28)
[2017-06-22] MEDS: BENZTROPINE 2 MG TAB PO ×2 (08:41→21:00)
[2017-06-22] MEDS: **PENDING PPD ENTRY XX (08:42)
[2017-06-22] MEDS: HALOPERIDOL 10 MG TAB PO ×4 (08:42→21:00)
[2017-06-22] MEDS: ACETAMINOPHEN TAB 650MG DOSE (2X325MG) PO (15:56)
[2017-06-22] MEDS: MAALOX 30 ML SUSP *UDC PO (19:29)
[2017-06-22] MEDS: LORazepam 1 MG TAB PO (20:47)
[2017-06-22] MEDS: CEPACOL LOZENGE PO (20:49)
[2017-06-23] MEDS: LORazepam 1 MG TAB PO ×3 (08:25→22:06)
[2017-06-23] MEDS: HALOPERIDOL 10 MG TAB PO ×4 (08:27→21:00)
[2017-06-23] MEDS: BENZTROPINE 2 MG TAB PO ×2 (08:27→21:00)
[2017-06-23] MEDS: **PENDING PPD ENTRY XX (08:27)
[2017-06-23] MEDS: ACETAMINOPHEN TAB 650MG DOSE (2X325MG) PO ×2 (11:25→20:11)
[2017-06-23] MEDS: MAALOX 30 ML SUSP *UDC PO (20:10)
[2017-06-24] MEDS: MAALOX 30 ML SUSP *UDC PO ×3 (08:08→20:02)
[2017-06-24] MEDS: HALOPERIDOL 10 MG TAB PO ×4 (08:08→20:03)
[2017-06-24] MEDS: BENZTROPINE 2 MG TAB PO ×2 (08:08→20:03)
[2017-06-24] MEDS: **PENDING PPD ENTRY XX (08:43)
[2017-06-24] MEDS: diphenhydrAMINE CREAM 30GM TOP (14:12)
[2017-06-24] MEDS: LORazepam 1 MG TAB PO (14:18)
[2017-06-25] MEDS: MAALOX 30 ML SUSP *UDC PO (01:01)
[2017-06-25] MEDS: LORazepam 1 MG TAB PO ×2 (02:41→10:47)
[2017-06-25] MEDS: **PENDING PPD ENTRY XX (09:00)
[2017-06-25] MEDS: HALOPERIDOL 10 MG TAB PO ×4 (09:00→20:36)
[2017-06-25] MEDS: BENZTROPINE 2 MG TAB PO ×2 (09:00→20:36)
[2017-06-25] MEDS: diphenhydrAMINE CREAM 30GM TOP (11:44)
[2017-06-25] MEDS: diphenhydrAMINE INJ 50MG/ML VIAL (J1200) IM ×2 (13:11→13:37)
[2017-06-25] MEDS: HALOPERIDOL 5 MG/ML VIAL (J1630) IM ×2 (13:11→13:41)
[2017-06-25] MEDS: LORazepam 2 MG/ML VIAL (J2060) IM ×2 (13:17→13:37)
[2017-06-25] MEDS: CEPACOL LOZENGE PO (20:47)
[2017-06-26] MEDS: MAALOX 30 ML SUSP *UDC PO ×3 (04:18→17:58)
[2017-06-26] MEDS: BENZTROPINE 2 MG TAB PO ×2 (07:48→20:10)
[2017-06-26] MEDS: diphenhydrAMINE CREAM 30GM TOP (07:48)
[2017-06-26] MEDS: HALOPERIDOL 10 MG TAB PO ×4 (07:49→20:10)
[2017-06-26] MEDS: **PENDING PPD ENTRY XX (07:49)
[2017-06-26] MEDS: ACETAMINOPHEN TAB 650MG DOSE (2X325MG) PO ×2 (08:24→15:43)
[2017-06-26] MEDS: LORazepam 1 MG TAB PO ×2 (13:34→20:08)
[2017-06-26] MEDS: CEPACOL LOZENGE PO (20:09)
[2017-06-27] MEDS: HALOPERIDOL 10 MG TAB PO ×4 (08:30→20:44)
[2017-06-27] MEDS: BENZTROPINE 2 MG TAB PO ×2 (08:30→20:44)
[2017-06-27] MEDS: **PENDING PPD ENTRY XX (08:30)
[2017-06-27] MEDS: LORazepam 1 MG TAB PO ×2 (12:03→20:43)
[2017-06-27] MEDS: MAALOX 30 ML SUSP *UDC PO ×2 (12:43→17:32)
[2017-06-27] MEDS: ACETAMINOPHEN TAB 650MG DOSE (2X325MG) PO (21:38)
[2017-06-28] MEDS: CEPACOL LOZENGE PO ×2 (01:39→19:44)
[2017-06-28] MEDS: **PENDING PPD ENTRY XX (08:18)
[2017-06-28] MEDS: HALOPERIDOL 10 MG TAB PO ×4 (08:18→20:13)
[2017-06-28] MEDS: BENZTROPINE 2 MG TAB PO ×2 (08:18→20:13)
[2017-06-28] MEDS: LORazepam 1 MG TAB PO ×2 (12:04→19:44)
[2017-06-29] MEDS: CEPACOL LOZENGE PO ×2 (02:06→13:10)
[2017-06-29] MEDS: **PENDING PPD ENTRY XX (08:49)
[2017-06-29] MEDS: BENZTROPINE 2 MG TAB PO ×2 (08:49→20:27)
[2017-06-29] MEDS: HALOPERIDOL 10 MG TAB PO ×4 (08:49→20:27)
[2017-06-29] MEDS: LORazepam 1 MG TAB PO ×2 (13:09→20:29)
[2017-06-29] MEDS: MAALOX 30 ML SUSP *UDC PO (20:28)
[2017-06-30] MEDS: CEPACOL LOZENGE PO ×3 (05:03→20:18)
[2017-06-30] MEDS: LORazepam 1 MG TAB PO ×3 (05:03→20:19)
[2017-06-30] MEDS: diphenhydrAMINE CREAM 30GM TOP (05:06)
[2017-06-30] MEDS: ACETAMINOPHEN TAB 650MG DOSE (2X325MG) PO (05:17)
[2017-06-30] MEDS: **PENDING PPD ENTRY XX (09:00)
[2017-06-30] MEDS: BENZTROPINE 2 MG TAB PO ×2 (09:00→20:20)
[2017-06-30] MEDS: HALOPERIDOL 10 MG TAB PO ×4 (09:00→20:20)
[2017-06-30] MEDS: MAALOX 30 ML SUSP *UDC PO (21:13)
[2017-07-01] MEDS: **PENDING PPD ENTRY XX (09:00)
[2017-07-01] MEDS: HALOPERIDOL 10 MG TAB PO ×4 (09:00→21:00)
[2017-07-01] MEDS: BENZTROPINE 2 MG TAB PO ×2 (09:00→21:00)
[2017-07-01] MEDS: LORazepam 1 MG TAB PO ×2 (09:14→18:01)
[2017-07-01] MEDS: CEPACOL LOZENGE PO ×3 (09:15→22:21)
[2017-07-01] MEDS: ACETAMINOPHEN TAB 650MG DOSE (2X325MG) PO (22:22)
[2017-07-02] MEDS: LORazepam 1 MG TAB PO ×2 (01:02→14:54)
[2017-07-02] MEDS: BENZTROPINE 2 MG TAB PO ×2 (09:00→20:33)
[2017-07-02] MEDS: **PENDING PPD ENTRY XX (09:00)
[2017-07-02] MEDS: HALOPERIDOL 10 MG TAB PO ×4 (09:00→20:33)
[2017-07-02] MEDS: CEPACOL LOZENGE PO (14:55)
[2017-07-03] MEDS: HALOPERIDOL 10 MG TAB PO ×4 (08:05→21:00)
[2017-07-03] MEDS: BENZTROPINE 2 MG TAB PO ×2 (08:05→21:00)
[2017-07-03] MEDS: **PENDING PPD ENTRY XX (08:05)
[2017-07-03] MEDS: MAALOX 30 ML SUSP *UDC PO ×2 (09:24→18:41)
[2017-07-03] MEDS: CEPACOL LOZENGE PO (11:20)
[2017-07-03] MEDS: LORazepam 1 MG TAB PO ×2 (11:20→21:42)
[2017-07-04] MEDS: HALOPERIDOL 10 MG TAB PO ×4 (09:00→21:00)
[2017-07-04] MEDS: **PENDING PPD ENTRY XX (09:00)
[2017-07-04] MEDS: BENZTROPINE 2 MG TAB PO ×2 (09:00→21:00)
[2017-07-04] MEDS: CEPACOL LOZENGE PO (09:15)
[2017-07-05] MEDS: **PENDING PPD ENTRY XX (08:23)
[2017-07-05] MEDS: BENZTROPINE 2 MG TAB PO ×2 (08:23→21:00)
[2017-07-05] MEDS: HALOPERIDOL 10 MG TAB PO ×4 (08:23→21:00)
[2017-07-05] MEDS: LORazepam 1 MG TAB PO (21:51)
[2017-07-05] MEDS: CEPACOL LOZENGE PO (21:51)
[2017-07-06] MEDS: BENZTROPINE 2 MG TAB PO ×2 (08:30→20:01)
[2017-07-06] MEDS: HALOPERIDOL 10 MG TAB PO ×4 (08:30→20:02)
[2017-07-06] MEDS: **PENDING PPD ENTRY XX (08:31)
[2017-07-06] MEDS: CEPACOL LOZENGE PO (19:45)
[2017-07-07] MEDS: CEPACOL LOZENGE PO (05:12)
[2017-07-07] MEDS: HALOPERIDOL 10 MG TAB PO ×4 (09:00→20:16)
[2017-07-07] MEDS: **PENDING PPD ENTRY XX (09:00)
[2017-07-07] MEDS: BENZTROPINE 2 MG TAB PO ×2 (09:00→20:15)
[2017-07-08] MEDS: CEPACOL LOZENGE PO (01:19)
[2017-07-08] MEDS: BENZTROPINE 2 MG TAB PO ×2 (08:27→21:00)
[2017-07-08] MEDS: **PENDING PPD ENTRY XX (08:27)
[2017-07-08] MEDS: HALOPERIDOL 10 MG TAB PO ×5 (08:27→21:00)
[2017-07-08] MEDS: LORazepam 1 MG TAB PO (15:42)
[2017-07-08] MEDS: HALOPERIDOL 5 MG/ML VIAL (J1630) IM ×3 (16:45→21:00)
[2017-07-08] MEDS: LORazepam 2 MG/ML VIAL (J2060) IM (17:00)
[2017-07-08] MEDS: diphenhydrAMINE INJ 50MG/ML VIAL (J1200) IM (17:00)
[2017-07-09] MEDS: HALOPERIDOL 10 MG TAB PO ×2 (08:54→12:14)
[2017-07-09] MEDS: **PENDING PPD ENTRY XX (08:57)
[2017-07-09] MEDS: HALOPERIDOL 5 MG/ML VIAL (J1630) IM ×2 (08:57→12:30)
[2017-07-09] MEDS: BENZTROPINE 2 MG TAB PO (08:57)
== END 2017-07-09 12:54 | DRG 885 ==
LOC: M PSY 06-19 16:52 → M ED 15:50 → M ED INP 18:04 → M PSY 21:14
DX: F31.2 Bipolar disorder, current episode manic severe with psychotic features (principal); E78.5 Hyperlipidemia, unspecified; F17.210 Nicotine dependence, cigarettes, uncomplicated; I10 Essential (primary) hypertension; Z91.19 Patient's noncompliance with other medical treatment and regimen; Z79.899 Other long term (current) drug therapy; Z91.013 Allergy to seafood; Z88.8 Allergy status to other drugs, medicaments and biological substances

== ENCOUNTER 2018-11-23 12:25 | Emergency (ER) | payer MEDICARE, MEDICAID ==
[~2018-11-23] VITALS: Ht 172.7 cm; Wt 88.6 kg
[~2018-11-23 12:25] MED LIST changes: -/DIVA50TA PO; -/HALO5TAB PO; +ABIL10TA9 PO; +ABIL1TAB11 PO; -ABIL1TAB5 PO; -ABIL5TAB5 PO; +BENZ2TAB5 PO; +DESI40PS3 EXT; -DESITIN EXT; +FOLI1TAB11 PO; -FOLI1TAB2 PO; +GLUT500C PO; +HALO10TA20 PO; +HALO1TAB21 PO; +ST J150T PO; +TRAZ-160 PO; -TRAZ50TA4 PO; -[UNRECOGNIZED DRUG - CODE] PO; +[UNRECOGNIZED DRUG - OTHER] PO
[2018-11-23 12:26] VITALS: BP 185/105
== END 2018-11-23 14:32 | disposition left against medical advice (07) ==
LOC: M ED 12:25
DX: R11.2 Nausea with vomiting, unspecified (principal); R19.7 Diarrhea, unspecified; Z53.21 Procedure and treatment not carried out due to patient leaving prior to being seen by health care provider

== ENCOUNTER → 2020-10-06 | Outpatient (REF) | payer MEDICARE, MEDICAID ==
[~2020-10-06] MED LIST changes: -TRAZ-160 PO; +TRAZ-252 PO
[2020-10-06 15:40] LABS: HEMATOCRIT 45.6 % (36.0-47.0); HEMOGLOBIN 14.5 g/dl (12.0-15.5); MEAN CORPUSCULAR HEMOGLOBIN 27.2 pg (27.0-33.0); MEAN CORPUSCULAR HGB CONC 31.8 g/dl (32.0-36.5); MEAN CORPUSCULAR VOLUME 85.4 fl (80.0-96.0); PLATELET COUNT, AUTOMATED 406 10^3/uL (150-450); RED BLOOD COUNT 5.34 10^6/uL (4.00-5.40); WHITE BLOOD COUNT 8.5 10^3/uL (4.0-10.0)
[2020-10-06 16:09] LABS: ALT/SGPT 33 U/L (12-78); BILIRUBIN,TOTAL 0.4 MG/DL (0.2-1.0); BLOOD UREA NITROGEN 14 MG/DL (7-18); CALCIUM LEVEL 9.7 MG/DL (8.8-10.2); CARBON DIOXIDE LEVEL 29 MEQ/L (21-32); CHLORIDE LEVEL 99 MEQ/L (98-107); CHOLESTEROL LEVEL 391 MG/DL (<200); CHOLESTEROL RISK RATIO 8.688 (<5); CREATININE FOR GFR 0.78 MG/DL (0.55-1.30); FERRITIN 211 NG/ML (8-252); FREE T4 1.07 NG/DL (0.76-1.46); GLOMERULAR FILTRATION RATE > 60.0 (>45); GLUCOSE, FASTING 279 MG/DL (70-100); HDL CHOLESTEROL 45 MG/DL (>40); NON-HDL-C 346 MG/DL; POTASSIUM SERUM 4.8 MEQ/L (3.5-5.1); SODIUM LEVEL 135 MEQ/L (136-145); THYROID STIMULATING HORMONE 0.917 uIU/ML (0.358-3.740); TOTAL PROTEIN 7.7 GM/DL (6.4-8.2); TRIGLYCERIDES LEVEL 461 MG/DL (<150)
== END ==
LOC: M PLALAB 12:05
PROVIDERS: ATTEND Nurse Practitioner Family
DX: R53.83 Other fatigue (principal); E78.5 Hyperlipidemia, unspecified; Z79.899 Other long term (current) drug therapy

== ENCOUNTER → 2020-11-10 | Outpatient (REF) | payer MEDICARE, MEDICAID ==
[2020-11-10 15:07] LABS: HEMOGLOBIN A1c 10.8 %
== END ==
LOC: M SFHCPLAZ 11:52
PROVIDERS: ATTEND Nurse Practitioner Family
DX: R73.01 Impaired fasting glucose (principal)
CPT/HCPCS: 36415; 83036; G0463

== ENCOUNTER 2021-08-03 10:48 | Inpatient (IN) | payer MEDICARE, MEDICAID ==
[~2021-08-03] VITALS: Ht 167.6 cm; Wt 84.0 kg
[2021-08-03] VITALS (13 sets, daily range): BP systolic 132–175; BP diastolic 64–90
[2021-08-03] MEDS: ASPIRIN 81 MG CHEW TABLET PO SCH (09:00)
[2021-08-03] MEDS ORDERED: HALD100I2 IM (11:01)
[2021-08-03] MEDS ORDERED: ATOR80TA59 PO (11:01)
[2021-08-03] MEDS ORDERED: METF-838 PO (11:01)
[2021-08-03 12:32] LABS: BASO % 0.5 % (0.0-1.0); EOS # 0.1 10^3/uL (0.0-0.5); EOS % 0.9 % (0.0-3.0); HEMATOCRIT 43.2 % (36.0-47.0); LYMPH # 1.4 10^3/uL (1.5-5.0); LYMPH % 16.1 % (24.0-44.0); MEAN CORPUSCULAR HEMOGLOBIN 27.8 pg (27.0-33.0); MEAN CORPUSCULAR HGB CONC 32.4 g/dl (32.0-36.5); MEAN CORPUSCULAR VOLUME 85.9 fl (80.0-96.0); MONO # 0.5 10^3/uL (0.0-0.8); MONO % 5.9 % (2.0-8.0); NEUTROPHILS # 6.7 10^3/uL (1.5-8.5); NEUTROPHILS % 76.3 % (36.0-66.0); PLATELET COUNT, AUTOMATED 299 10^3/uL (150-450); RED BLOOD COUNT 5.03 10^6/uL (4.00-5.40); WHITE BLOOD COUNT 8.8 10^3/uL (4.0-10.0)
[2021-08-03] MEDS: LABETALOL 100MG/20ML VIAL IV PRN ×2 (12:47→13:14)
[2021-08-03 12:57] LABS: BLOOD UREA NITROGEN 16 MG/DL (7-18); CALCIUM LEVEL 9.5 MG/DL (8.8-10.2); CARBON DIOXIDE LEVEL 25 MEQ/L (21-32); CHLORIDE LEVEL 103 MEQ/L (98-107); CREATININE FOR GFR 0.95 MG/DL (0.55-1.30); GLOMERULAR FILTRATION RATE > 60.0 (>45); GLUCOSE, FASTING 202 MG/DL (70-100); POTASSIUM SERUM 4.5 MEQ/L (3.5-5.1); SODIUM LEVEL 136 MEQ/L (136-145)
[2021-08-03] MEDS ORDERED: LABETALOL HCL 200 MG in D5W 160 ML IV SCH ×2 (13:40→14:30)
[2021-08-03] MEDS ORDERED: MOM 30ML SUSPENSION UDC PO PRN (13:55)
[2021-08-03] MEDS ORDERED: ACETAMINOPHEN TAB 650MG DOSE (2X325MG) PO PRN (13:55)
[2021-08-03 15:00] LABS: INR 0.93; PROTHROMBIN TIME 12.9 SECONDS (12.7-14.5)
[2021-08-03] MEDS ORDERED: HOME MED LIST COMPLETE! XX SCH (15:00)
[2021-08-03] MEDS: LABETALOL HCL 200 MG in D5W 160 ML IV SCH ×5 (15:00→23:20)
[2021-08-03 15:01] LABS: PARTIAL THROMBOPLASTIN TIME 27.7 SECONDS (25.9-37.0)
[2021-08-03 15:19] LABS: CHOLESTEROL RISK RATIO 4.765 (<5)
[2021-08-03] MEDS ORDERED: ASPIRIN 81 MG CHEW TABLET PO ONE (16:25)
[2021-08-03 17:40] LABS: CK-MB VALUE MASS < 1.0 NG/ML (<3.6); CPK CREATINE PHOSPHOKINASE 39 U/L (26-192); MB/CK RELATIVE INDEX 2.56 (< OR =4)
[2021-08-03] MEDS: HumaLOG INSULIN (NovoLOG) PER UNIT SC SCH (18:00)
[2021-08-03] MEDS ORDERED: GLUCAGON INJ 1MG VIAL SC PRN (18:45)
[2021-08-03] MEDS ORDERED: GLUCOSE 4GM CHEW TABLET PO PRN (18:45)
[2021-08-03] MEDS ORDERED: DEXTROSE 50% 50 ML SYRINGE IV PRN (18:45)
[2021-08-03] MEDS: ATORVASTATIN 20 MG TAB PO SCH (21:00)
[2021-08-04] VITALS (15 sets, daily range): BP systolic 126–196; BP diastolic 60–92
[2021-08-04] MEDS: LABETALOL HCL 200 MG in D5W 160 ML IV SCH ×3 (01:00→04:20)
[2021-08-04 04:13] LABS: HEMATOCRIT 39.4 % (36.0-47.0); HEMOGLOBIN 12.8 g/dl (12.0-15.5); MEAN CORPUSCULAR HEMOGLOBIN 27.9 pg (27.0-33.0); MEAN CORPUSCULAR HGB CONC 32.5 g/dl (32.0-36.5); PLATELET COUNT, AUTOMATED 290 10^3/uL (150-450); RED BLOOD COUNT 4.58 10^6/uL (4.00-5.40)
[2021-08-04 04:36] LABS: BLOOD UREA NITROGEN 14 MG/DL (7-18); CALCIUM LEVEL 9.1 MG/DL (8.8-10.2); CARBON DIOXIDE LEVEL 26 MEQ/L (21-32); CHLORIDE LEVEL 106 MEQ/L (98-107); CREATININE FOR GFR 0.78 MG/DL (0.55-1.30); GLOMERULAR FILTRATION RATE > 60.0 (>45); GLUCOSE, FASTING 167 MG/DL (70-100); POTASSIUM SERUM 4.1 MEQ/L (3.5-5.1); SODIUM LEVEL 139 MEQ/L (136-145)
[2021-08-04] MEDS: HumaLOG INSULIN (NovoLOG) PER UNIT SC SCH ×4 (05:30→18:00)
[2021-08-04] MEDS: ASPIRIN 81 MG CHEW TABLET PO SCH ×2 (09:00→09:55)
[2021-08-04] MEDS ORDERED: OXYMETAZOLINE 0.05% NASAL SPRAY (AFRIN) PRN (09:35)
[2021-08-04] MEDS: ENOXAPARIN 40MG/0.4ML SYRINGE (J1650 PER 10MG) SC SCH (09:55)
[2021-08-04] MEDS ORDERED: E-Z-PAQUE 96% w/w SUSP 176GM BTL As Ordered ONE (12:48)
[2021-08-04] MEDS ORDERED: VARIBAR PUDDING 40% w/v 230ML TUBE As Ordered ONE (12:48)
[2021-08-04] MEDS ORDERED: BARIUM SULFATE 700 MG TABLET (E-Z-DISK) As Ordered ONE (12:48)
[2021-08-04] MEDS ORDERED: VARIBAR NECTAR 40% w/v 240ML SUSP BTL As Ordered ONE (12:48)
[2021-08-04] MEDS ORDERED: LABETALOL 100MG/20ML VIAL IV PRN (14:45)
[2021-08-04] MEDS: ATORVASTATIN 20 MG TAB PO SCH (21:09)
[2021-08-04 21:50] LABS: MAGNESIUM LEVEL 1.8 MG/DL (1.7-2.2)
[2021-08-05] VITALS (7 sets, daily range): BP systolic 135–198; BP diastolic 72–90
[2021-08-05 05:45] LABS: HEMATOCRIT 41.8 % (36.0-47.0); HEMOGLOBIN 13.2 g/dl (12.0-15.5); MEAN CORPUSCULAR HEMOGLOBIN 27.6 pg (27.0-33.0); MEAN CORPUSCULAR HGB CONC 31.6 g/dl (32.0-36.5); MEAN CORPUSCULAR VOLUME 87.4 fl (80.0-96.0); PLATELET COUNT, AUTOMATED 298 10^3/uL (150-450); RED BLOOD COUNT 4.78 10^6/uL (4.00-5.40); WHITE BLOOD COUNT 6.9 10^3/uL (4.0-10.0)
[2021-08-05] MEDS: HumaLOG INSULIN (NovoLOG) PER UNIT SC SCH ×5 (06:00→23:54)
[2021-08-05 06:04] LABS: BLOOD UREA NITROGEN 18 MG/DL (7-18); CALCIUM LEVEL 9.3 MG/DL (8.8-10.2); CARBON DIOXIDE LEVEL 27 MEQ/L (21-32); CHLORIDE LEVEL 108 MEQ/L (98-107); CREATININE FOR GFR 0.76 MG/DL (0.55-1.30); GLOMERULAR FILTRATION RATE > 60.0 (>45); GLUCOSE, FASTING 167 MG/DL (70-100); POTASSIUM SERUM 3.7 MEQ/L (3.5-5.1); SODIUM LEVEL 140 MEQ/L (136-145)
[2021-08-05] MEDS: ASPIRIN 81 MG CHEW TABLET PO SCH (10:12)
[2021-08-05] MEDS: ENOXAPARIN 40MG/0.4ML SYRINGE (J1650 PER 10MG) SC SCH (10:12)
[2021-08-05] MEDS: ATORVASTATIN 20 MG TAB PO SCH (20:51)
[2021-08-06] VITALS (7 sets, daily range): BP systolic 135–188; BP diastolic 60–79
[2021-08-06 05:50] LABS: HEMATOCRIT 39.6 % (36.0-47.0); MEAN CORPUSCULAR HEMOGLOBIN 28.3 pg (27.0-33.0); MEAN CORPUSCULAR HGB CONC 32.8 g/dl (32.0-36.5); MEAN CORPUSCULAR VOLUME 86.3 fl (80.0-96.0); PLATELET COUNT, AUTOMATED 273 10^3/uL (150-450); RED BLOOD COUNT 4.59 10^6/uL (4.00-5.40); WHITE BLOOD COUNT 5.9 10^3/uL (4.0-10.0)
[2021-08-06 06:12] LABS: BLOOD UREA NITROGEN 16 MG/DL (7-18); CALCIUM LEVEL 8.9 MG/DL (8.8-10.2); CARBON DIOXIDE LEVEL 27 MEQ/L (21-32); CHLORIDE LEVEL 109 MEQ/L (98-107); GLOMERULAR FILTRATION RATE > 60.0 (>45); GLUCOSE, FASTING 173 MG/DL (70-100); POTASSIUM SERUM 3.7 MEQ/L (3.5-5.1); SODIUM LEVEL 143 MEQ/L (136-145)
[2021-08-06] MEDS: ASPIRIN 81 MG CHEW TABLET PO SCH (07:46)
[2021-08-06] MEDS: ENOXAPARIN 40MG/0.4ML SYRINGE (J1650 PER 10MG) SC SCH (07:46)
[2021-08-06] MEDS: HumaLOG INSULIN (NovoLOG) PER UNIT SC SCH ×3 (07:47→17:14)
[2021-08-06] MEDS: ATORVASTATIN 20 MG TAB PO SCH (20:39)
[2021-08-06] MEDS ORDERED: HumaLOG INSULIN (NovoLOG) PER UNIT SC SCH (21:00)
[2021-08-07] VITALS (8 sets, daily range): BP systolic 144–171; BP diastolic 64–82
[2021-08-07 06:19] LABS: HEMATOCRIT 39.9 % (36.0-47.0); HEMOGLOBIN 12.7 g/dl (12.0-15.5); MEAN CORPUSCULAR HGB CONC 31.8 g/dl (32.0-36.5); MEAN CORPUSCULAR VOLUME 87.9 fl (80.0-96.0); PLATELET COUNT, AUTOMATED 289 10^3/uL (150-450); RED BLOOD COUNT 4.54 10^6/uL (4.00-5.40); WHITE BLOOD COUNT 7.2 10^3/uL (4.0-10.0)
[2021-08-07 06:40] LABS: BLOOD UREA NITROGEN 18 MG/DL (7-18); CARBON DIOXIDE LEVEL 28 MEQ/L (21-32); CHLORIDE LEVEL 108 MEQ/L (98-107); GLOMERULAR FILTRATION RATE > 60.0 (>45); GLUCOSE, FASTING 157 MG/DL (70-100); POTASSIUM SERUM 3.5 MEQ/L (3.5-5.1); SODIUM LEVEL 142 MEQ/L (136-145)
[2021-08-07] MEDS: HumaLOG INSULIN (NovoLOG) PER UNIT SC SCH ×2 (08:45→12:12)
[2021-08-07] MEDS: ASPIRIN 81 MG CHEW TABLET PO SCH (08:45)
[2021-08-07] MEDS: ENOXAPARIN 40MG/0.4ML SYRINGE (J1650 PER 10MG) SC SCH (08:45)
[2021-08-07] MEDS ORDERED: LISI20TA33 PO (11:46)
[2021-08-07] MEDS ORDERED: ASPI81CH8 PO (11:46)
[2021-08-07] MEDS ORDERED: HALOPERIDOL DECANOATE 100 MG/ML VIAL (J1631) IM SCH (13:00)
== END 2021-08-07 14:08 | DRG 65 ==
LOC: M ED 10:48 → M ED INP 13:53 → ENRESERV 15:26 → M PCU 17:05
PROVIDERS: ADMIT Internal Medicine; ATTEND Internal Medicine
DX: I63.59 Cerebral infarction due to unspecified occlusion or stenosis of other cerebral artery (principal); G81.91 Hemiplegia, unspecified affecting right dominant side; I16.1 Hypertensive emergency; R29.810 Facial weakness; R47.1 Dysarthria and anarthria; F25.9 Schizoaffective disorder, unspecified; F41.9 Anxiety disorder, unspecified; F32.A Depression, unspecified; E78.5 Hyperlipidemia, unspecified; I72.0 Aneurysm of carotid artery; I10 Essential (primary) hypertension; F17.200 Nicotine dependence, unspecified, uncomplicated; K08.89 Other specified disorders of teeth and supporting structures; E11.9 Type 2 diabetes mellitus without complications; Z79.84 Long term (current) use of oral hypoglycemic drugs; Z79.899 Other long term (current) drug therapy; Z88.8 Allergy status to other drugs, medicaments and biological substances; Z91.19 Patient's noncompliance with other medical treatment and regimen; Z91.013 Allergy to seafood

== ENCOUNTER 2025-03-20 17:19 | Emergency (ER) | payer MEDICARE, MEDICAID ==
[~2025-03-20] VITALS: Ht 172.7 cm; Wt 78.5 kg
[~2025-03-20 17:19] MED LIST changes: +ACET-683 PO; +AMLO-751 PO; -AMLO10TA PO; +AMLO1TAB24 PO; +ARIP400S IM; +ASPI81CH8 PO; +ATOR80TA59 PO; +BENZ200C70 PO; +BENZ2TAB48 PO; -BENZ2TAB5 PO; +COLA100C5 PO; +FLUO-290 PO; +HALD100I2 IM; +HYDR25TA88 PO; +LISI10TA22 PO; +LISI20TA33 PO; +MAGICMW SSP; +METF-838 PO; +METF500T13 PO; +METO1TAB87 PO; +RISATAB3 PO
[2025-03-20 17:22] VITALS: BP 202/108; TEMP 96.8; O2SAT 98
== END 2025-03-20 17:28 | disposition left against medical advice (07) ==
LOC: M ED 17:19
DX: Z53.21 Procedure and treatment not carried out due to patient leaving prior to being seen by health care provider (principal)

== ENCOUNTER → 2025-03-29 | Outpatient (REF) | payer MEDICARE, MEDICAID ==
[2025-03-29 13:46] LABS: ALT/SGPT 19 U/L (7.0-40); AST/SGOT 11 U/L (<34); CALCIUM LEVEL 9.1 MG/DL (8.3-10.6); CARBON DIOXIDE LEVEL 23 MMOL/L (20-31); CHLORIDE LEVEL 104 MMOL/L (98-107); CHOLESTEROL LEVEL 327 MG/DL (<200); CHOLESTEROL RISK RATIO 6.03 (<5); CREATININE FOR GFR 0.65 MG/DL (0.55-1.30); GLOMERULAR FILTRATION RATE > 90.0 (>45); LDL CHOLESTEROL 204.8 MG/DL (<100); NON-HDL-C 272.8 MG/DL; POTASSIUM SERUM 4.4 MMOL/L (3.5-5.1); SODIUM LEVEL 136 MMOL/L (136-145); TRIGLYCERIDES LEVEL 340 MG/DL (<150)
[2025-03-29 14:02] LABS: ESTIMATED AVERAGE GLUCOSE 177.0 MG/DL (60-110)
== END ==
LOC: M LAB REF 12:01
PROVIDERS: ATTEND Student in an Organized Health Care Education/Training Program
DX: Z79.899 Other long term (current) drug therapy (principal); Z68.25 Body mass index [BMI] 25.0-25.9, adult

== ENCOUNTER → 2025-06-22 | Outpatient (REF) | payer MEDICARE, MEDICAID ==
[2025-06-22 16:28] LABS: BASO # 0.0 10^3/uL (0.0-0.2); BASO % 0.5 % (0.0-1.0); EOS # 0.2 10^3/uL (0.0-0.5); EOS % 2.0 % (0.0-3.0); LYMPH # 2.5 10^3/uL (1.5-5.0); LYMPH % 33.4 % (24.0-44.0); MONO # 0.5 10^3/uL (0.0-0.8); MONO % 7.0 % (2.0-8.0); NEUTROPHILS # 4.2 10^3/uL (1.5-8.5); NEUTROPHILS % 56.6 % (36.0-66.0); PLATELET COUNT, AUTOMATED 352 10^3/uL (150-450)
[2025-06-22 16:35] LABS: CHOLESTEROL LEVEL 281 MG/DL (<200); CHOLESTEROL RISK RATIO 5.08 (<5); IRON (FE) 48 UG/DL (50-170); NON-HDL-C 225.7 MG/DL; TRIGLYCERIDES LEVEL 460 MG/DL (<150)
[2025-06-22 17:00] LABS: ESTIMATED AVERAGE GLUCOSE 171.0 MG/DL (60-110)
== END ==
LOC: M LAB REF 15:31
PROVIDERS: ATTEND Student in an Organized Health Care Education/Training Program
DX: E78.5 Hyperlipidemia, unspecified (principal); E11.9 Type 2 diabetes mellitus without complications; R06.00 Dyspnea, unspecified